=== PATIENT | female | born 1930 | race Caucasian/White ===

== ENCOUNTER 2018-02-18 20:07 | Inpatient (IN) | payer MEDICARE, MEDICAID ==
--- NOTE | 2018-02-18 20:21 | ED Physician Chart ---
ED Chief Complaint/HPI - Patient Information Date Seen:: 02/18/18 Time Seen:: 20:15 Chief Complaint:: escape risk History of Present Illness:: Patient apparently tries to escape from her detention facility Historian:: EMS Review:: Transfer documents Reviewed ED Review of Systems - Review of Systems General/Constitutional: No fever Skin: No skin lesions Head: No headache Eyes: Acuity change ENT: No earache Neck: No neck pain Cardio Vascular: No chest pain Pulmonary: No SOB GI: No nausea, No vomiting, No diarrhea G/U: No dysuria Musculoskeletal: No bone or joint pain, No back pain, No muscle pain Endocrine: No polyuria, No polydipsia Psychiatric: Prior psych history Hematopoietic: No bruising Allergic/Immuno: No urticaria Neurological: No syncope ED Past Medical History - Past Medical History Past Medical History: HTN, Dyslipidemia, Thyroid disorder, Dementia, Other ( hyperlipidemia; hypothyroidism) Family History: Other (not available) Social History: Care Facility Surgical History: other (unknown) Psychiatricy History: Dementia Medication: Reviewed Family Medical History - Family Member Mother History Unknown: Yes ED Physical Exam - Physical Examination General/Constitutional: Well-developed, well-nourished, Alert Head: Atraumatic Eyes: Lids, conjuctiva normal Skin: Nl inspection ENMT: External ears, nose nl, Nasal exam nl, Lips, teeth, gums nl Neck: Nontender, No bruit Respiratory: Nl effort/Exclusion, Clear to Auscultation Cardio Vascular: RRR Other Cardio Vascular comments:: 3/6 systolic murmur GI: No tenderness/rebounding/guarding, No organomegaly ED Labs/Radiology/EKG Results - Radiology Results Results: Laboratory Results - last 24 hr 02/18/18 02/18/18 02/18/18 20:30 20:30 20:30 WBC 7.3 RBC 3.90 Hgb 12.4 Hct 36.2 L MCV 92.8 MCH 31.7 H MCHC Differential 34.1 RDW 12.9 Plt Count 246 MPV 6.9 Neutrophils % 71.2 Lymphocytes % 19.4 L Monocytes % 5.6 Eosinophils % 3.0 Basophils % 0.8 Sodium 138 Potassium 3.6 Chloride 106 Carbon Dioxide 24.4 Anion Gap 11.2 BUN 37 H Creatinine 1.1 Est GFR ( Amer) TNP Est GFR (Non-Af Amer) TNP BUN/Creatinine Ratio 33.6 Glucose 108 H Hemoglobin A1c % 5.8 Calcium 10.2 Total Bilirubin 0.3 AST 18 ALT 6 L Alkaline Phosphatase 73 Troponin I Total Protein 6.7 Albumin 4.0 Globulin 2.7 Albumin/Globulin Ratio 1.5 Triglycerides 85 Cholesterol 204 H LDL Cholesterol Direct 135 HDL Cholesterol 51 02/18/18 20:30 WBC RBC Hgb Hct MCV MCH MCHC Differential RDW Plt Count MPV Neutrophils % Lymphocytes % Monocytes % Eosinophils % Basophils % Sodium Potassium Chloride Carbon Dioxide Anion Gap BUN Creatinine Est GFR ( Amer) Est GFR (Non-Af Amer) BUN/Creatinine Ratio Glucose Hemoglobin A1c % Calcium Total Bilirubin AST ALT Alkaline Phosphatase Troponin I 0.01 Total Protein Albumin Globulin Albumin/Globulin Ratio Triglycerides Cholesterol LDL Cholesterol Direct HDL Cholesterol - EKG Interpretations Rate & Rhythm: normal sinus rhythm with a rate of [address]: normal axis ED Assessment - Assessment General Assessment: Patient appears to have some dehydration as her BUN is 37 and creatinine is normal. She is a candidate for oral rehydration. ED Septic Shock - . Is Septic Shock (SBP<90, OR Lactate>4 mmol\L) present?: No ED Reassessment (Disposition) - Reassessment Reassessment Condition:: Unchanged - Diagnosis Diagnosis:: Dementia; escape risk; dehydration - Patient Disposition Admitted to:: [facility] Admitting Medical Physician:: Ignacio Green Admitting Psych Physician:: Colin Allen Condition at Disposition:: Stable, Unchanged
[2018-02-18 20:37] LABS: % BASOPHILS 0.8 % (0.0-2.0); % LYMPHOCYTES 19.4 % (20.0-50.0); % MONOCYTES 5.6 % (2.0-10.0); % NEUTROPHILS 71.2 % (40.0-80.0); BASOPHILE ABSOLUTE 0.1 Th/cumm (0-0.2); EOSINOPHILE ABSOLUTE 0.2 Th/cmm (0.1-0.4); HEMATOCRIT 36.2 % (41.0-60); HEMOGLOBIN 12.4 gm/dL (12-16); LYMPHOCYTE ABSOLUTE 1.4 Th/cmm (1.5-3.0); MEAN CELL VOLUME 92.8 fl (81-100); MEAN CORPUSCULAR HEMOGLOBIN 31.7 pg (27.0-31.0); MEAN CORPUSCULAR HGB CONC 34.1 pg (28.0-36.0); MEAN PLATELET VOLUME 6.9 fl; MONOCYTE ABSOLUTE 0.4 Th/cmm (0.3-1.0); NEUTROPHILE ABSOLUTE 5.2 Th/cmm (1.8-8.0); PLATELET COUNT 246 Th/cmm (150-400); RED CELL DISTRIBUTION WIDTH 12.9 % (11.5-20.0); WHITE BLOOD COUNT 7.3 Th/cmm (4.8-10.8)
[2018-02-18 21:06] LABS: ALB/GLOB RATIO 1.5 (1.0-1.8); ALKALINE PHOSPHATASE 73 U/L (34-104); ANION GAP 11.2 (7.0-16.0); BILIRUBIN,TOTAL 0.3 mg/dL (0.3-1.0); BUN - UREA NITROGEN 37 mg/dL (7-25); CALCIUM SERUM 10.2 mg/dL (8.6-10.3); CARBON DIOXIDE 24.4 mEq/L (21.0-31.0); CHLORIDE 106 mEq/L (98-107); CHOLESTEROL 204 mg/dL (<200); CREATININE - SERUM 1.1 mg/dL (0.6-1.2); GLUCOSE 108 mg/dL (70-105); HDL -HIGH DENSITY LIPOPROTEIN 51 mg/dL (23-92); POTASSIUM SERUM 3.6 mEq/L (3.5-5.1); SGOT 18 U/L (13-39); SGPT/ALT 6 U/L (7-52); SODIUM SERUM 138 mEq/L (136-145); TOTAL PROTEIN,SERUM 6.7 gm/dL (6.0-8.3); TRIGLYCERIDES 85 mg/dL (<150)
[2018-02-18 21:29] LABS: A1C % 5.8 % (4.0-6.0)
[2018-02-19] MEDS ORDERED: Haloperidol Lactate 5 mg/mL 1mL Vial ONE (00:34)
[2018-02-19] MEDS ORDERED: Haloperidol Lactate 5 mg/mL 1mL Vial IM STA (00:35)
[2018-02-19 04:50] VITALS: BP 149/76
[2018-02-19] MEDS ORDERED: Maalox 30 mL Cup PO PRN (04:54)
[2018-02-19] MEDS ORDERED: Magnesium Hydroxide (MOM) 30 mL UDC PO PRN (04:54)
[2018-02-19] MEDS: Levothyroxine 0.025 Mg Tab PO SCH (06:38)
[2018-02-19] MEDS: Multivitamin w/ Minerals Tab PO SCH (08:47)
[2018-02-19] MEDS ORDERED: MEMANTINE HCL 14 MG PO SCH (09:00)
--- NOTE | 2018-02-19 18:13 | History & Physical ---
ADMIT DATE: 02/19/2018 HISTORY OF PRESENT ILLNESS: The patient is an 87-year-old male with long history of hypertension, hypothyroidism, hyperlipidemia, dementia, admitted to [facility] Department under Dr. Allen's service. The patient denies any chest pain, shortness of breath, nausea, vomiting, fever or chills. PAST MEDICAL HISTORY: History of hypertension, hypothyroidism, hyperlipidemia, dementia, degenerative joint disease. PAST SURGICAL HISTORY: No recent surgery. ALLERGIES: None. MEDICATIONS: Follow admission reconciliation. SOCIAL HISTORY: Nonsmoker, no alcohol, no drugs. FAMILY HISTORY: Noncontributory. REVIEW OF SYSTEMS: RENAL SYSTEM: No history of chronic renal disorder. CARDIOVASCULAR SYSTEM: No coronary artery disease. ENDOCRINE: He has history of hypothyroidism. ENDOCRINE SYSTEM: No diabetes mellitus. GASTROINTESTINAL SYSTEM: No upper or lower gastrointestinal bleed. NEUROLOGICAL SYSTEM: No seizure disorder. MUSCULOSKELETAL SYSTEM: No muscular dystrophy. HEMATOLOGIC SYSTEM: No bleeding tendencies. RESPIRATORY SYSTEM: No asthma. GENITOURINARY: No dysuria or hematuria. PHYSICAL EXAMINATION: GENERAL: The patient is awake, not fully coherent. VITAL SIGNS: Temperature is 98, heart rate 74, blood pressure 144/86. HEENT: Normocephalic. Pupils reactive to light and accommodation. Sclerae clear. NECK: Supple. Negative for lymphadenopathy, JVD or bruit. CHEST: Bilateral normal. No rhonchi or wheezing. HEART: S1, S2 normal. No gallop or thrill. ABDOMEN: Soft, bowel sounds positive. EXTREMITIES: No edema. NEUROLOGIC: Awake, alert, mildly confused. No focal motor deficits. LABORATORY DATA: White blood 7.3, hemoglobin 12.4, hematocrit ____ 31.7, and platelet is 246. Sodium 138, potassium 3.6, BUN 37, creatinine 0.1, cholesterol 204. ASSESSMENT: 1. Hypertension. 2. Hyperlipidemia. 3. Hypothyroidism. 4. Dementia. PLAN: The patient admitted to the hospital under Dr. Allen's service. Medical problem to address during hospitalization is depression and dementia. Medical problems to address at discharge are hypertension, hypothyroidism, and hyperlipidemia. The patient is medically stable for activity. Thank you Dr. Allen for asking me to see your patient. JOB# [id number]
[2018-02-19] MEDS ORDERED: Non-Formulary Item 1 EA (Atorvastatin Calcium [Lipitor] 20 MG) PO SCH (21:00)
[2018-02-19] MEDS: Atorvastatin Calcium 10 MG TAB PO SCH (21:20)
[2018-02-20] MEDS: Levothyroxine 0.025 Mg Tab PO SCH (06:34)
[2018-02-20] MEDS: Multivitamin w/ Minerals Tab PO SCH (09:15)
--- NOTE | 2018-02-20 16:17 | General Progress Note ---
Subjective - Review of Systems Service Date: 02/20/18 Subjective: RESTING COMFORTABLY IN CHAIR NO DISTRESS Objective - Results Result Diagrams: 02/18/18 20:30 02/18/18 20:30 Recent Labs: Laboratory Last Values WBC 7.3 Th/cmm (4.8-10.8) 02/18/18 20:30 RBC 3.90 Mil/cmm (3.80-5.20) 02/18/18 20:30 Hgb 12.4 gm/dL (12-16) 02/18/18 20:30 Hct 36.2 % (41.0-60) L 02/18/18 20:30 MCV 92.8 fl (81-100) 02/18/18 20:30 MCH 31.7 pg (27.0-31.0) H 02/18/18 20:30 MCHC Differential 34.1 pg (28.0-36.0) 02/18/18 20:30 RDW 12.9 % (11.5-20.0) 02/18/18 20:30 Plt Count 246 Th/cmm (150-400) 02/18/18 20:30 MPV 6.9 fl 02/18/18 20:30 Neutrophils % 71.2 % (40.0-80.0) 02/18/18 20:30 Lymphocytes % 19.4 % (20.0-50.0) L 02/18/18 20:30 Monocytes % 5.6 % (2.0-10.0) 02/18/18 20:30 Eosinophils % 3.0 % (0.0-5.0) 02/18/18 20:30 Basophils % 0.8 % (0.0-2.0) 02/18/18 20:30 Sodium 138 mEq/L (136-145) 02/18/18 20:30 Potassium 3.6 mEq/L (3.5-5.1) 02/18/18 20:30 Chloride 106 mEq/L (98-107) 02/18/18 20:30 Carbon Dioxide 24.4 mEq/L (21.0-31.0) 02/18/18 20:30 Anion Gap 11.2 (7.0-16.0) 02/18/18 20:30 BUN 37 mg/dL (7-25) H 02/18/18 20:30 Creatinine 1.1 mg/dL (0.6-1.2) 02/18/18 20:30 Est GFR ( Amer) TNP 02/18/18 20:30 Est GFR (Non-Af Amer) TNP 02/18/18 20:30 BUN/Creatinine Ratio 33.6 02/18/18 20:30 Glucose 108 mg/dL (70-105) H 02/18/18 20:30 Hemoglobin A1c % 5.8 % (4.0-6.0) 02/18/18 20:30 Calcium 10.2 mg/dL (8.6-10.3) 02/18/18 20:30 Total Bilirubin 0.3 mg/dL (0.3-1.0) 02/18/18 20:30 AST 18 U/L (13-39) 02/18/18 20:30 ALT 6 U/L (7-52) L 02/18/18 20:30 Alkaline Phosphatase 73 U/L (34-104) 02/18/18 20:30 Troponin I 0.01 ng/mL (0.01-0.05) 02/18/18 20:30 Total Protein 6.7 gm/dL (6.0-8.3) 02/18/18 20:30 Albumin 4.0 gm/dL (3.7-5.3) 02/18/18 20:30 Globulin 2.7 gm/dL 02/18/18 20:30 Albumin/Globulin Ratio 1.5 (1.0-1.8) 02/18/18 20:30 Triglycerides 85 mg/dL (<150) 02/18/18 20:30 Cholesterol 204 mg/dL (<200) H 02/18/18 20:30 LDL Cholesterol Direct 135 mg/dL (75-193) 02/18/18 20:30 HDL Cholesterol 51 mg/dL (23-92) 02/18/18 20:30 TSH 1.62 uIU/ml (0.34-5.60) 02/18/18 20:30 RPR NONREACTIVE (NONREACTIVE) 02/18/18 20:30 - Physical Exam Vitals and I&O: Vital Signs Temp 98.1 F 02/20/18 07:07 Pulse 93 02/20/18 09:14 Resp 20 02/20/18 07:07 BP 157/94 02/20/18 09:14 Pulse Ox 96 02/20/18 07:07 Intake & Output 02/19/18 02/20/18 02/20/18 18:59 06:59 18:59 Intake Total 120 Balance 120 Intake: Oral 120 Other: # Voids 3 # Bowel Movements 0 Active Medications: Current Medications Al Hydrox/Mg Hydrox/Simethicone (Maalox) 30 ml PO Q6HR PRN PRN Reason: GI DISTRESS Stop: 04/20/18 04:53 Atorvastatin Calcium (Lipitor) 20 mg PO HS ALYSSA Stop: 04/20/18 20:59 Last Admin: 02/19/18 21:20 Dose: 20 mg Levothyroxine Sodium (Synthroid) 0.025 mg PO QDAC ALYSSA Stop: 04/20/18 07:29 Last Admin: 02/20/18 06:34 Dose: 0.025 mg Lorazepam (Ativan) 0.5 mg PO Q6HR PRN; Protocol PRN Reason: Agitation Stop: 04/20/18 04:55 Last Admin: 02/20/18 01:05 Dose: 0.5 mg Losartan Potassium (Cozaar) 50 mg PO DAILY ALYSSA Stop: 04/20/18 08:59 Last Admin: 02/20/18 09:14 Dose: 50 mg Magnesium Hydroxide (Milk Of Magnesia) 30 ml PO DAILY PRN PRN Reason: Constipation Stop: 04/20/18 04:53 Memantine (Namenda) 5 mg PO BID ALYSSA Stop: 04/20/18 08:59 Last Admin: 02/20/18 09:15 Dose: 5 mg Zolpidem Tartrate (Ambien) 5 mg PO HS PRN PRN Reason: Insomnia Stop: 04/20/18 04:56 Last Admin: 02/19/18 21:22 Dose: 5 mg General: No acute distress HEENT: Atraumatic, PERRLA Neck: Supple, JVD Cardiovascular: Regular rate, Normal S1, Normal S2 Lungs: Clear to auscultation Abdomen: Bowel sounds, Soft Assessment/Plan - Assessment Assessment: DEMENTIA HTN HYPERLIPIDEMIA HYPOTHYROIDISM - Plan Plan: CONTINUE CURRENT TREATMENT
[2018-02-20] MEDS: Atorvastatin Calcium 10 MG TAB PO SCH (20:46)
--- NOTE | 2018-02-20 22:13 | Psychiatric Evaluation ---
DATE OF SERVICE: 02/20/2018 PSYCHIATRIC INITIAL EVALUATION AND MENTAL STATUS EXAM AGE: 87. SEX: Female. PHYSICIAN: Dr. Allen. CHIEF COMPLAINT: Depression and isolative behavior and not taking medications. HISTORY OF PRESENT ILLNESS: The patient is an 87-year-old female who was transferred from [facility] because of increased depression and isolation and also, noncompliant with taking her medications. The patient also has been having ____ isolating herself and is sleeping a lot. She also has not been eating well according to the staff. Also, apparently the patient tried to escape from the facility recently because of her depression. The patient currently is guarded and does not want to answer most of my questions and is withdrawn. PAST PSYCHIATRIC HISTORY: The patient has history of dementia and the patient is taking Namenda 5 mg twice a day. Also, because the patient was aggressive toward the staff and agitated and was refusing to take medications and trying to escape the patient was placed on a 5150 hold for grave disability. PAST MEDICAL HISTORY: The patient has a history of what seems to be hypertension, dyslipidemia, and thyroid disease. Also, the patient has hypothyroidism. SOCIAL HISTORY: The patient lives in [facility]. No known alcohol or drug use. ALLERGIES: No known allergies. MENTAL STATUS EXAMINATION: The patient appears her stated age. Disheveled. Irritable mood. Angry. Hardly answer questions and mumbling and wants to be left alone. The patient did not answer questions regarding hallucinations or delusions but seems to be responding. The patient did not answer questions regarding suicide or homicide. The patient is alert, but seems to be disoriented to time, place, person and situation. Impaired immediate and recent memory, but intact remote memory. Poor insight and poor judgment. ASSESSMENT: PRIMARY DIAGNOSIS: Unspecified psychosis. SECONDARY DIAGNOSIS: Dementia, moderate to severe with psychotic features. MEDICAL DIAGNOSES: 1. Hypothyroidism. 2. Hypertension. 3. Hyperlipidemia. TREATMENT PLAN: We will monitor patient's behavior and condition closely. We will continue Namenda 5 mg twice a day and we will adjust the dose. Also, we will review behavior for further recommendations. ESTIMATED LENGTH OF STAY: 5-7 days. THE PATIENT'S STRENGTHS AND WEAKNESSES: The patient's strength is not clear at this time. Weaknesses are poor judgment and aggressive behavior and ineffective coping. AFTER DISCHARGE PLAN: Outpatient treatment and followup will continue as an outpatient. CRITERIA FOR DISCHARGE: The patient will not be psychotic or suicidal or homicidal and ____ impulse control and stabilize psychotropic medications. AFTER DISCHARGE PLANS: Outpatient treatment and followup and the patient will return to [place]. JOB# [id number]
[2018-02-21] MEDS: Levothyroxine 0.025 Mg Tab PO SCH (06:45)
[2018-02-21] MEDS: Multivitamin w/ Minerals Tab PO SCH (09:28)
--- NOTE | 2018-02-21 18:11 | General Progress Note ---
Subjective - Review of Systems Service Date: 02/21/18 Subjective: RESTING COMFORTABLY IN CHAIR NO DISTRESS Objective - Results Result Diagrams: 02/18/18 20:30 02/18/18 20:30 Recent Labs: Laboratory Last Values WBC 7.3 Th/cmm (4.8-10.8) 02/18/18 20:30 RBC 3.90 Mil/cmm (3.80-5.20) 02/18/18 20:30 Hgb 12.4 gm/dL (12-16) 02/18/18 20:30 Hct 36.2 % (41.0-60) L 02/18/18 20:30 MCV 92.8 fl (81-100) 02/18/18 20:30 MCH 31.7 pg (27.0-31.0) H 02/18/18 20:30 MCHC Differential 34.1 pg (28.0-36.0) 02/18/18 20:30 RDW 12.9 % (11.5-20.0) 02/18/18 20:30 Plt Count 246 Th/cmm (150-400) 02/18/18 20:30 MPV 6.9 fl 02/18/18 20:30 Neutrophils % 71.2 % (40.0-80.0) 02/18/18 20:30 Lymphocytes % 19.4 % (20.0-50.0) L 02/18/18 20:30 Monocytes % 5.6 % (2.0-10.0) 02/18/18 20:30 Eosinophils % 3.0 % (0.0-5.0) 02/18/18 20:30 Basophils % 0.8 % (0.0-2.0) 02/18/18 20:30 Sodium 138 mEq/L (136-145) 02/18/18 20:30 Potassium 3.6 mEq/L (3.5-5.1) 02/18/18 20:30 Chloride 106 mEq/L (98-107) 02/18/18 20:30 Carbon Dioxide 24.4 mEq/L (21.0-31.0) 02/18/18 20:30 Anion Gap 11.2 (7.0-16.0) 02/18/18 20:30 BUN 37 mg/dL (7-25) H 02/18/18 20:30 Creatinine 1.1 mg/dL (0.6-1.2) 02/18/18 20:30 Est GFR ( Amer) TNP 02/18/18 20:30 Est GFR (Non-Af Amer) TNP 02/18/18 20:30 BUN/Creatinine Ratio 33.6 02/18/18 20:30 Glucose 108 mg/dL (70-105) H 02/18/18 20:30 Hemoglobin A1c % 5.8 % (4.0-6.0) 02/18/18 20:30 Calcium 10.2 mg/dL (8.6-10.3) 02/18/18 20:30 Total Bilirubin 0.3 mg/dL (0.3-1.0) 02/18/18 20:30 AST 18 U/L (13-39) 02/18/18 20:30 ALT 6 U/L (7-52) L 02/18/18 20:30 Alkaline Phosphatase 73 U/L (34-104) 02/18/18 20:30 Troponin I 0.01 ng/mL (0.01-0.05) 02/18/18 20:30 Total Protein 6.7 gm/dL (6.0-8.3) 02/18/18 20:30 Albumin 4.0 gm/dL (3.7-5.3) 02/18/18 20:30 Globulin 2.7 gm/dL 02/18/18 20:30 Albumin/Globulin Ratio 1.5 (1.0-1.8) 02/18/18 20:30 Triglycerides 85 mg/dL (<150) 02/18/18 20:30 Cholesterol 204 mg/dL (<200) H 02/18/18 20:30 LDL Cholesterol Direct 135 mg/dL (75-193) 02/18/18 20:30 HDL Cholesterol 51 mg/dL (23-92) 02/18/18 20:30 TSH 1.62 uIU/ml (0.34-5.60) 02/18/18 20:30 RPR NONREACTIVE (NONREACTIVE) 02/18/18 20:30 - Physical Exam Vitals and I&O: Vital Signs Temp 97.6 F 02/21/18 06:56 Pulse 92 02/21/18 09:28 Resp 19 02/21/18 06:56 BP 149/81 02/21/18 09:28 Pulse Ox 94 02/21/18 06:56 Active Medications: Current Medications Al Hydrox/Mg Hydrox/Simethicone (Maalox) 30 ml PO Q6HR PRN PRN Reason: GI DISTRESS Stop: 04/20/18 04:53 Atorvastatin Calcium (Lipitor) 20 mg PO HS ALYSSA Stop: 04/20/18 20:59 Last Admin: 02/20/18 20:46 Dose: 20 mg Levothyroxine Sodium (Synthroid) 0.025 mg PO QDAC ALYSSA Stop: 04/20/18 07:29 Last Admin: 02/21/18 06:45 Dose: 0.025 mg Lorazepam (Ativan) 0.5 mg PO Q6HR PRN; Protocol PRN Reason: Agitation Stop: 04/20/18 04:55 Last Admin: 02/21/18 10:53 Dose: 0.5 mg Losartan Potassium (Cozaar) 50 mg PO DAILY ALYSSA Stop: 04/20/18 08:59 Last Admin: 02/21/18 09:28 Dose: 50 mg Magnesium Hydroxide (Milk Of Magnesia) 30 ml PO DAILY PRN PRN Reason: Constipation Stop: 04/20/18 04:53 Memantine (Namenda) 5 mg PO BID ALYSSA Stop: 04/20/18 08:59 Last Admin: 02/21/18 16:21 Dose: 5 mg Zolpidem Tartrate (Ambien) 5 mg PO HS PRN PRN Reason: Insomnia Stop: 04/20/18 04:56 Last Admin: 02/20/18 20:46 Dose: 5 mg General: No acute distress HEENT: Atraumatic, PERRLA Neck: Supple, JVD Cardiovascular: Regular rate, Normal S1, Normal S2 Lungs: Clear to auscultation Abdomen: Bowel sounds, Soft Assessment/Plan - Assessment Assessment: DEMENTIA HTN HYPERLIPIDEMIA HYPOTHYROIDISM - Plan Plan: CONTINUE CURRENT TREATMENT
[2018-02-21] MEDS: Atorvastatin Calcium 10 MG TAB PO SCH (20:26)
--- NOTE | 2018-02-21 20:55 | Progress Notes ---
DATE: 02/21/2018 SUBJECTIVE: Chart reviewed and the patient interviewed. Also discussed the patient's condition with the staff and reviewed the records and labs. The patient is still severely depressed with flat affect. The patient also is still unable to provide any information because both language barrier and because of her depression. She also is still uncooperative in regard to her personal hygiene and ADLs and gets agitated when staff tries to help her with her ADLs. Otherwise, the patient is compliant with taking medications with no side effects of medications. ASSESSMENT: The patient is still depressed and is still considered to be gravely disabled. TREATMENT PLAN: Continue to monitor her behavior and condition closely. Also, we will continue adjusting psychotropic medications. Also, we will place the patient on 5250 hold for grave disability. JOB# [id number]
[2018-02-22] MEDS: Levothyroxine 0.025 Mg Tab PO SCH (06:34)
[2018-02-22] MEDS: Multivitamin w/ Minerals Tab PO SCH (08:44)
--- NOTE | 2018-02-22 20:38 | Internal Medicine Prog Note ---
Internal Medicine Subjective - Subjective Service Date: 02/22/18 Patient seen and examined:: with staff Patient is:: awake, in bed, confused Per staff patient has:: no adverse event Internal Medicine Objective - Results Result Diagrams: 02/18/18 20:30 02/18/18 20:30 Recent Labs: Laboratory Last Values WBC 7.3 Th/cmm (4.8-10.8) 02/18/18 20:30 RBC 3.90 Mil/cmm (3.80-5.20) 02/18/18 20:30 Hgb 12.4 gm/dL (12-16) 02/18/18 20:30 Hct 36.2 % (41.0-60) L 02/18/18 20:30 MCV 92.8 fl (81-100) 02/18/18 20:30 MCH 31.7 pg (27.0-31.0) H 02/18/18 20:30 MCHC Differential 34.1 pg (28.0-36.0) 02/18/18 20:30 RDW 12.9 % (11.5-20.0) 02/18/18 20:30 Plt Count 246 Th/cmm (150-400) 02/18/18 20:30 MPV 6.9 fl 02/18/18 20:30 Neutrophils % 71.2 % (40.0-80.0) 02/18/18 20:30 Lymphocytes % 19.4 % (20.0-50.0) L 02/18/18 20:30 Monocytes % 5.6 % (2.0-10.0) 02/18/18 20:30 Eosinophils % 3.0 % (0.0-5.0) 02/18/18 20:30 Basophils % 0.8 % (0.0-2.0) 02/18/18 20:30 Sodium 138 mEq/L (136-145) 02/18/18 20:30 Potassium 3.6 mEq/L (3.5-5.1) 02/18/18 20:30 Chloride 106 mEq/L (98-107) 02/18/18 20:30 Carbon Dioxide 24.4 mEq/L (21.0-31.0) 02/18/18 20:30 Anion Gap 11.2 (7.0-16.0) 02/18/18 20:30 BUN 37 mg/dL (7-25) H 02/18/18 20:30 Creatinine 1.1 mg/dL (0.6-1.2) 02/18/18 20:30 Est GFR ( Amer) TNP 02/18/18 20:30 Est GFR (Non-Af Amer) TNP 02/18/18 20:30 BUN/Creatinine Ratio 33.6 02/18/18 20:30 Glucose 108 mg/dL (70-105) H 02/18/18 20:30 Hemoglobin A1c % 5.8 % (4.0-6.0) 02/18/18 20:30 Calcium 10.2 mg/dL (8.6-10.3) 02/18/18 20:30 Total Bilirubin 0.3 mg/dL (0.3-1.0) 02/18/18 20:30 AST 18 U/L (13-39) 02/18/18 20:30 ALT 6 U/L (7-52) L 02/18/18 20:30 Alkaline Phosphatase 73 U/L (34-104) 02/18/18 20:30 Troponin I 0.01 ng/mL (0.01-0.05) 02/18/18 20:30 Total Protein 6.7 gm/dL (6.0-8.3) 02/18/18 20:30 Albumin 4.0 gm/dL (3.7-5.3) 02/18/18 20:30 Globulin 2.7 gm/dL 02/18/18 20:30 Albumin/Globulin Ratio 1.5 (1.0-1.8) 02/18/18 20:30 Triglycerides 85 mg/dL (<150) 02/18/18 20:30 Cholesterol 204 mg/dL (<200) H 02/18/18 20:30 LDL Cholesterol Direct 135 mg/dL (75-193) 02/18/18 20:30 HDL Cholesterol 51 mg/dL (23-92) 02/18/18 20:30 TSH 1.62 uIU/ml (0.34-5.60) 02/18/18 20:30 RPR NONREACTIVE (NONREACTIVE) 02/18/18 20:30 - Physical Exam Vitals and I&O: Vital Signs Temp 98.1 F 02/22/18 15:54 Pulse 89 02/22/18 15:54 Resp 19 02/22/18 15:54 BP 130/71 02/22/18 15:54 Pulse Ox 95 02/22/18 15:54 Intake & Output 02/22/18 02/22/18 02/23/18 06:59 18:59 06:59 Intake Total 240 Balance 240 Intake: Oral 240 Other: # Voids 2 Stool Characteristics Formed Active Medications: Current Medications Al Hydrox/Mg Hydrox/Simethicone (Maalox) 30 ml PO Q6HR PRN PRN Reason: GI DISTRESS Stop: 04/20/18 04:53 Atorvastatin Calcium (Lipitor) 20 mg PO HS ALYSSA Stop: 04/20/18 20:59 Last Admin: 02/21/18 20:26 Dose: 20 mg Levothyroxine Sodium (Synthroid) 0.025 mg PO QDAC ALYSSA Stop: 04/20/18 07:29 Last Admin: 02/22/18 06:34 Dose: 0.025 mg Lorazepam (Ativan) 0.5 mg PO Q6HR PRN; Protocol PRN Reason: Agitation Stop: 04/20/18 04:55 Last Admin: 02/22/18 13:50 Dose: 0.5 mg Losartan Potassium (Cozaar) 50 mg PO DAILY ALYSSA Stop: 04/20/18 08:59 Last Admin: 02/22/18 08:43 Dose: 50 mg Magnesium Hydroxide (Milk Of Magnesia) 30 ml PO DAILY PRN PRN Reason: Constipation Stop: 04/20/18 04:53 Memantine (Namenda) 5 mg PO BID ALYSSA Stop: 04/20/18 08:59 Last Admin: 02/22/18 16:48 Dose: 5 mg Zolpidem Tartrate (Ambien) 5 mg PO HS PRN PRN Reason: Insomnia Stop: 04/20/18 04:56 Last Admin: 02/21/18 20:26 Dose: 5 mg General: demented HEENT: NC/AT, PERRLA, EOMI, anicteric sclerae, throat clear Neck: Supple, No JVD, No thyromegaly, +2 carotid pulse wo bruit, No LAD Lungs: CTAB Cardiovascular: RRR, Normal S1, Normal S2, without murmur Abdomen: soft, non-tender, non-distended Extremities: clear Neurological: no change Internal Medicine Assmt/Plan - Assessment Assessment: 1.HTN. 2.HYPOTHYROIDISIM. 3.HYPERLIPIDEMIA. 4.DEMENTIA. - Plan Plan: CONTINUE ON CURRENT MEDICATION AND DIET.
[2018-02-22] MEDS: Atorvastatin Calcium 10 MG TAB PO SCH (21:11)
--- NOTE | 2018-02-22 23:02 | Progress Notes ---
DATE: 02/22/[address] Allen. Case was discussed with staff of the patient, reviewed records. This is an 87-year-old male who was admitted on 02/20/2018. The patient came from [place] because of increasing depression, noncompliant with taking her medication, has been isolating herself sleeping a lot, not eating well. Continues to be unpredictable, impulsive with a history of dementia. The patient is on Namenda 5 mg twice a day. She is compliant with the medication with no side effects, no sedation, no nausea, no extrapyramidal symptoms and we will continue to work with the patient in group therapy, milieu therapy, adjust medication as needed. JOB# [id number]
[2018-02-23] MEDS: Levothyroxine 0.025 Mg Tab PO SCH (06:37)
[2018-02-23] MEDS: Multivitamin w/ Minerals Tab PO SCH (08:13)
[2018-02-23] MEDS ORDERED: Haloperidol Lactate 5 mg/mL 1mL Vial ONE (08:26)
[2018-02-23] MEDS ORDERED: Haloperidol Lactate 5 mg/mL 1mL Vial IM STA (08:27)
--- NOTE | 2018-02-23 16:02 | Progress Notes ---
DATE: 02/23/2018 SUBJECTIVE: An 87-year-old female transferred from [facility] was depressed, isolative, poor medication compliance, sleeping more than usual and not eating very well, apparently tried to escape the facility at some point, history of dementia. Dr. Guerin saw the patient yesterday, noted to be unpredictable, impulsive, some confusion noted. On [id number], the patient is withdrawn, isolative, not really cooperative with interview. Staff noting she has been in a Carole chair, awake, alert, at times not answering questions. She did on my exam noted to be confused, anxious, sometimes hostile and other times hyperverbal. Medications were reviewed including dosages and frequencies. The patient on Namenda for example. ASSESSMENT: The patient remains symptomatic, confused, still impulsive and unpredictable. Given her ongoing symptoms, she is not safe for discharge. [facility]# [id number]
[2018-02-23] MEDS: Atorvastatin Calcium 10 MG TAB PO SCH (20:25)
--- NOTE | 2018-02-23 21:18 | Internal Medicine Prog Note ---
Internal Medicine Subjective - Subjective Service Date: 02/23/18 Patient seen and examined:: with staff Patient is:: awake, in bed, confused Per staff patient has:: no adverse event Internal Medicine Objective - Results Result Diagrams: 02/18/18 20:30 02/18/18 20:30 Recent Labs: Laboratory Last Values WBC 7.3 Th/cmm (4.8-10.8) 02/18/18 20:30 RBC 3.90 Mil/cmm (3.80-5.20) 02/18/18 20:30 Hgb 12.4 gm/dL (12-16) 02/18/18 20:30 Hct 36.2 % (41.0-60) L 02/18/18 20:30 MCV 92.8 fl (81-100) 02/18/18 20:30 MCH 31.7 pg (27.0-31.0) H 02/18/18 20:30 MCHC Differential 34.1 pg (28.0-36.0) 02/18/18 20:30 RDW 12.9 % (11.5-20.0) 02/18/18 20:30 Plt Count 246 Th/cmm (150-400) 02/18/18 20:30 MPV 6.9 fl 02/18/18 20:30 Neutrophils % 71.2 % (40.0-80.0) 02/18/18 20:30 Lymphocytes % 19.4 % (20.0-50.0) L 02/18/18 20:30 Monocytes % 5.6 % (2.0-10.0) 02/18/18 20:30 Eosinophils % 3.0 % (0.0-5.0) 02/18/18 20:30 Basophils % 0.8 % (0.0-2.0) 02/18/18 20:30 Sodium 138 mEq/L (136-145) 02/18/18 20:30 Potassium 3.6 mEq/L (3.5-5.1) 02/18/18 20:30 Chloride 106 mEq/L (98-107) 02/18/18 20:30 Carbon Dioxide 24.4 mEq/L (21.0-31.0) 02/18/18 20:30 Anion Gap 11.2 (7.0-16.0) 02/18/18 20:30 BUN 37 mg/dL (7-25) H 02/18/18 20:30 Creatinine 1.1 mg/dL (0.6-1.2) 02/18/18 20:30 Est GFR ( Amer) TNP 02/18/18 20:30 Est GFR (Non-Af Amer) TNP 02/18/18 20:30 BUN/Creatinine Ratio 33.6 02/18/18 20:30 Glucose 108 mg/dL (70-105) H 02/18/18 20:30 Hemoglobin A1c % 5.8 % (4.0-6.0) 02/18/18 20:30 Calcium 10.2 mg/dL (8.6-10.3) 02/18/18 20:30 Total Bilirubin 0.3 mg/dL (0.3-1.0) 02/18/18 20:30 AST 18 U/L (13-39) 02/18/18 20:30 ALT 6 U/L (7-52) L 02/18/18 20:30 Alkaline Phosphatase 73 U/L (34-104) 02/18/18 20:30 Troponin I 0.01 ng/mL (0.01-0.05) 02/18/18 20:30 Total Protein 6.7 gm/dL (6.0-8.3) 02/18/18 20:30 Albumin 4.0 gm/dL (3.7-5.3) 02/18/18 20:30 Globulin 2.7 gm/dL 02/18/18 20:30 Albumin/Globulin Ratio 1.5 (1.0-1.8) 02/18/18 20:30 Triglycerides 85 mg/dL (<150) 02/18/18 20:30 Cholesterol 204 mg/dL (<200) H 02/18/18 20:30 LDL Cholesterol Direct 135 mg/dL (75-193) 02/18/18 20:30 HDL Cholesterol 51 mg/dL (23-92) 02/18/18 20:30 TSH 1.62 uIU/ml (0.34-5.60) 02/18/18 20:30 RPR NONREACTIVE (NONREACTIVE) 02/18/18 20:30 - Physical Exam Vitals and I&O: Vital Signs Temp 97.8 F 02/23/18 14:00 Pulse 72 02/23/18 14:00 Resp 16 02/23/18 14:00 BP 125/77 02/23/18 14:00 Pulse Ox 96 02/23/18 14:00 Intake & Output 02/23/18 02/23/18 02/24/18 06:59 18:59 06:59 Intake Total 240 Balance 240 Intake: Oral 240 Other: # Voids 3 # Bowel Movements 0 Active Medications: Current Medications Al Hydrox/Mg Hydrox/Simethicone (Maalox) 30 ml PO Q6HR PRN PRN Reason: GI DISTRESS Stop: 04/20/18 04:53 Atorvastatin Calcium (Lipitor) 20 mg PO HS ALYSSA Stop: 04/20/18 20:59 Last Admin: 02/23/18 20:25 Dose: 20 mg Levothyroxine Sodium (Synthroid) 0.025 mg PO QDAC ALYSSA Stop: 04/20/18 07:29 Last Admin: 02/23/18 06:37 Dose: 0.025 mg Lorazepam (Ativan) 0.5 mg PO Q6HR PRN; Protocol PRN Reason: Agitation Stop: 04/20/18 04:55 Last Admin: 02/23/18 20:25 Dose: 0.5 mg Lorazepam (Ativan) 0.5 mg PO Q4HR PRN; Protocol PRN Reason: Agitation Stop: 04/24/18 07:41 Losartan Potassium (Cozaar) 50 mg PO DAILY ALYSSA Stop: 04/20/18 08:59 Last Admin: 02/23/18 08:14 Dose: 50 mg Magnesium Hydroxide (Milk Of Magnesia) 30 ml PO DAILY PRN PRN Reason: Constipation Stop: 04/20/18 04:53 Memantine (Namenda) 5 mg PO BID ALYSSA Stop: 04/20/18 08:59 Last Admin: 02/23/18 18:38 Dose: Not Given Zolpidem Tartrate (Ambien) 5 mg PO HS PRN PRN Reason: Insomnia Stop: 04/20/18 04:56 Last Admin: 02/23/18 20:25 Dose: 5 mg General: demented HEENT: NC/AT, PERRLA, EOMI, anicteric sclerae, throat clear Neck: Supple, No JVD, No thyromegaly, +2 carotid pulse wo bruit, No LAD Lungs: CTAB Cardiovascular: RRR, Normal S1, Normal S2, without murmur Abdomen: soft, non-tender, non-distended Extremities: clear Neurological: no change Internal Medicine Assmt/Plan - Assessment Assessment: 1.HTN. 2.HYPOTHYROIDISIM. 3.HYPERLIPIDEMIA. 4.DEMENTIA. - Plan Plan: CONTINUE ON CURRENT MEDICATION AND DIET. Nutritional Asmnt/Malnutr-PDOC - Dietary Evaluation Malnutrition Findings (Please click <Entered> for more info): Nutritional Asmnt/Malnutrition Start: 02/23/18 12: 53 Text: Status: Complete Freq: Protocol: Document 02/23/18 12:53 [facility] (Rec: 02/23/18 12:56 [facility] [email or web address]) Nutritional Asmnt/Malnutrition Patient General Information Nutritional Screening Moderate Risk Diagnosis psychosis NOS Pertinent Medical Hx/Surgical Hx HTN, hypothyroidism, hyperlipidemia, dementia, DJD Subjective Information Pt seen sleeping in bed at time of visit. per EMR, PO intake 100% of meals. Current Diet Order/ Nutrition Support mec soft chopped NIKOLAY Pertinent Medications synthroid Pertinent Labs 02/18 BUN 37, glucose 108, A1c 5.8 Nutritional Hx/Data Height 1.63 m Height (Calculated Centimeters) 162.6 Current Weight (lbs) 63.503 kg Weight (Calculated Kilograms) 63.5 Weight (Calculated Grams) 20557.9 [place] Body Weight 120 Body Mass Index (BMI) 24.0 Weight Status Approriate GI Symptoms GI Symptoms None Last BM none Difficult in: None Skin Integrity/Comment: intact Current %PO Good (75-100%) Estimated Nutritional Goals BEE in Kcals: Using Current wt Calories/Kcals/Kg 25-30 Kcals Calculated 3533-1690 Protein: Using Current wt Protein g/k Protein Calculated 64 Fluid: ml 1600-1920ml (1ml/kcal) Nutritional Problem No current Nutrition Prob Problem N/A Malnutrition Alert Is there a minimum of two criteria No selected? Query Text:Check all the applicable criteria. A minimum of two criteria are recommended for diagnosis of either severe or non-severe malnutrition. Malnutrition Related to Morbid Obesity Malnutrition related to morbid obesity No Intervention/Recommendation Comments 1. Continue with mech soft chopped NIKOLAY diet as ordered. 2. Monitor PO intake, wt, labs and skin integrity 3. F/U as low risk in 7 days, 03/02 Expected Outcomes/Goals Expected Outcomes/Goals 1. PO intake to meet at least 75% of nutritional needs. 2. Wt stability, skin to remain intact, labs to approach WNL.
--- NOTE | 2018-02-23 22:00 | History & Physical ---
ADMIT DATE: 02/23/2018 HISTORY OF PRESENT ILLNESS: The patient is an 87-year-old male with long history of hypertension, hypothyroidism, hyperlipidemia, dementia, admitted to under Dr. Allen's service for evaluation and treatment. The patient has been agitated and confused. The patient is a poor historian. PAST MEDICAL HISTORY: History of hypertension, hyperlipidemia, hypothyroidism, degenerative joint disease, dementia. PAST SURGICAL HISTORY: No recent surgery. ALLERGIES: None. SOCIAL HISTORY: No smoking, no alcohol, no drug. MEDICATIONS: Follow admission reconciliation. REVIEW OF SYSTEMS: RENAL SYSTEM: No history of chronic renal disorder. CARDIOVASCULAR SYSTEM: History of hypertension, no coronary artery disease. ENDOCRINE SYSTEM: No diabetes mellitus. She has history of hypothyroidism. GASTROINTESTINAL SYSTEM: No upper or lower gastrointestinal bleed. NEUROLOGICAL SYSTEM: Has history of dementia. No seizure disorder. SKELETOMUSCULAR SYSTEM: Has degenerative joint disease. HEMATOLOGIC SYSTEM: No bleeding tendencies. RESPIRATORY SYSTEM: No asthma. GENITOURINARY: No dysuria or hematuria. PHYSICAL EXAMINATION: GENERAL: She is awake, not coherent. VITAL SIGNS: Temperature is 97.8, heart rate 72, blood pressure 125/77. HEENT: Normocephalic. Pupils reacting equally to light and accommodation. Sclerae clear. NECK: Supple. Negative for lymphadenopathy, JVD or bruit. CHEST: Air bilaterally normal. No rhonchi or wheezing. HEART: S1, S2 normal. No gallop rhythm. ABDOMEN: Soft, bowel sounds positive. EXTREMITIES: No edema. BACK: No vertebral. SKIN: Intact. GENITALIA AND RECTAL: No complaint done by primary physician. NEUROLOGIC: Awake, not coherent. No focal motor deficits. LABORATORY DATA: White blood cell , hemoglobin 12.4, hematocrit 36.2, platelet 246. Sodium 138, potassium 3.6, BUN 37, creatinine 1.1. Cholesterol 204, TSH 1.62. RPR is nonreactive. ASSESSMENT: 1. Hypertension. 2. Hypothyroidism. 3. Hyperlipidemia. 4. Dementia. PLAN: The patient admitted to the hospital, admitted to [facility] under Dr. Allen's service. Medical problems addressed during this hospitalization is dementia. Medical problems addressed at discharge are hypertension, hyperlipidemia, hypothyroidism. The patient is medically stable for activity. Thank you Dr. Allen for asking me to see your patient. [facility]# [id number]
[2018-02-24] MEDS: Levothyroxine 0.025 Mg Tab PO SCH (06:33)
[2018-02-24] MEDS: Multivitamin w/ Minerals Tab PO SCH (09:50)
[2018-02-24] MEDS: Atorvastatin Calcium 10 MG TAB PO SCH (20:31)
--- NOTE | 2018-02-24 21:49 | Internal Medicine Prog Note ---
Internal Medicine Subjective - Subjective Service Date: 02/24/18 Patient seen and examined:: with staff Patient is:: awake, in bed, confused Per staff patient has:: no adverse event Internal Medicine Objective - Results Result Diagrams: 02/18/18 20:30 02/18/18 20:30 Recent Labs: Laboratory Last Values WBC 7.3 Th/cmm (4.8-10.8) 02/18/18 20:30 RBC 3.90 Mil/cmm (3.80-5.20) 02/18/18 20:30 Hgb 12.4 gm/dL (12-16) 02/18/18 20:30 Hct 36.2 % (41.0-60) L 02/18/18 20:30 MCV 92.8 fl (81-100) 02/18/18 20:30 MCH 31.7 pg (27.0-31.0) H 02/18/18 20:30 MCHC Differential 34.1 pg (28.0-36.0) 02/18/18 20:30 RDW 12.9 % (11.5-20.0) 02/18/18 20:30 Plt Count 246 Th/cmm (150-400) 02/18/18 20:30 MPV 6.9 fl 02/18/18 20:30 Neutrophils % 71.2 % (40.0-80.0) 02/18/18 20:30 Lymphocytes % 19.4 % (20.0-50.0) L 02/18/18 20:30 Monocytes % 5.6 % (2.0-10.0) 02/18/18 20:30 Eosinophils % 3.0 % (0.0-5.0) 02/18/18 20:30 Basophils % 0.8 % (0.0-2.0) 02/18/18 20:30 Sodium 138 mEq/L (136-145) 02/18/18 20:30 Potassium 3.6 mEq/L (3.5-5.1) 02/18/18 20:30 Chloride 106 mEq/L (98-107) 02/18/18 20:30 Carbon Dioxide 24.4 mEq/L (21.0-31.0) 02/18/18 20:30 Anion Gap 11.2 (7.0-16.0) 02/18/18 20:30 BUN 37 mg/dL (7-25) H 02/18/18 20:30 Creatinine 1.1 mg/dL (0.6-1.2) 02/18/18 20:30 Est GFR ( Amer) TNP 02/18/18 20:30 Est GFR (Non-Af Amer) TNP 02/18/18 20:30 BUN/Creatinine Ratio 33.6 02/18/18 20:30 Glucose 108 mg/dL (70-105) H 02/18/18 20:30 Hemoglobin A1c % 5.8 % (4.0-6.0) 02/18/18 20:30 Calcium 10.2 mg/dL (8.6-10.3) 02/18/18 20:30 Total Bilirubin 0.3 mg/dL (0.3-1.0) 02/18/18 20:30 AST 18 U/L (13-39) 02/18/18 20:30 ALT 6 U/L (7-52) L 02/18/18 20:30 Alkaline Phosphatase 73 U/L (34-104) 02/18/18 20:30 Troponin I 0.01 ng/mL (0.01-0.05) 02/18/18 20:30 Total Protein 6.7 gm/dL (6.0-8.3) 02/18/18 20:30 Albumin 4.0 gm/dL (3.7-5.3) 02/18/18 20:30 Globulin 2.7 gm/dL 02/18/18 20:30 Albumin/Globulin Ratio 1.5 (1.0-1.8) 02/18/18 20:30 Triglycerides 85 mg/dL (<150) 02/18/18 20:30 Cholesterol 204 mg/dL (<200) H 02/18/18 20:30 LDL Cholesterol Direct 135 mg/dL (75-193) 02/18/18 20:30 HDL Cholesterol 51 mg/dL (23-92) 02/18/18 20:30 TSH 1.62 uIU/ml (0.34-5.60) 02/18/18 20:30 RPR NONREACTIVE (NONREACTIVE) 02/18/18 20:30 - Physical Exam Vitals and I&O: Vital Signs Temp 98.4 F 02/24/18 20:00 Pulse 99 02/24/18 20:00 Resp 21 02/24/18 20:00 BP 146/72 02/24/18 20:00 Pulse Ox 98 02/24/18 20:00 Intake & Output 02/24/18 02/24/18 02/25/18 06:59 18:59 06:59 Intake Total 120 800 Balance 120 800 Intake: Oral 120 800 Other: # Voids 3 3 # Bowel Movements 1 Active Medications: Current Medications Al Hydrox/Mg Hydrox/Simethicone (Maalox) 30 ml PO Q6HR PRN PRN Reason: GI DISTRESS Stop: 04/20/18 04:53 Atorvastatin Calcium (Lipitor) 20 mg PO HS ALYSSA Stop: 04/20/18 20:59 Last Admin: 02/24/18 20:31 Dose: 20 mg Levothyroxine Sodium (Synthroid) 0.025 mg PO QDAC ALYSSA Stop: 04/20/18 07:29 Last Admin: 02/24/18 06:33 Dose: 0.025 mg Lorazepam (Ativan) 0.5 mg PO Q6HR PRN; Protocol PRN Reason: Agitation Stop: 04/20/18 04:55 Last Admin: 02/24/18 17:30 Dose: 0.5 mg Lorazepam (Ativan) 0.5 mg PO Q4HR PRN; Protocol PRN Reason: Agitation Stop: 04/24/18 07:41 Losartan Potassium (Cozaar) 50 mg PO DAILY ALYSSA Stop: 04/20/18 08:59 Last Admin: 02/24/18 09:49 Dose: 50 mg Magnesium Hydroxide (Milk Of Magnesia) 30 ml PO DAILY PRN PRN Reason: Constipation Stop: 04/20/18 04:53 Memantine (Namenda) 5 mg PO BID ALYSSA Stop: 04/20/18 08:59 Last Admin: 02/24/18 17:30 Dose: 5 mg Zolpidem Tartrate (Ambien) 5 mg PO HS PRN PRN Reason: Insomnia Stop: 04/20/18 04:56 Last Admin: 02/24/18 20:31 Dose: 5 mg General: demented HEENT: NC/AT, PERRLA, EOMI, anicteric sclerae, throat clear Neck: Supple, No JVD, No thyromegaly, +2 carotid pulse wo bruit, No LAD Lungs: CTAB Cardiovascular: RRR, Normal S1, Normal S2, without murmur Abdomen: soft, non-tender, non-distended Extremities: clear Neurological: no change Internal Medicine Assmt/Plan - Assessment Assessment: 1.HTN. 2.HYPOTHYROIDISIM. 3.HYPERLIPIDEMIA. 4.DEMENTIA. - Plan Plan: CONTINUE ON CURRENT MEDICATION AND DIET. Nutritional Asmnt/Malnutr-PDOC - Dietary Evaluation Malnutrition Findings (Please click <Entered> for more info): Nutritional Asmnt/Malnutrition Start: 02/23/18 12: 53 Text: Status: Complete Freq: Protocol: Document 02/23/18 12:53 [facility] (Rec: 02/23/18 12:56 [facility] [email or web address]) Nutritional Asmnt/Malnutrition Patient General Information Nutritional Screening Moderate Risk Diagnosis psychosis NOS Pertinent Medical Hx/Surgical Hx HTN, hypothyroidism, hyperlipidemia, dementia, DJD Subjective Information Pt seen sleeping in bed at time of visit. per EMR, PO intake 100% of meals. Current Diet Order/ Nutrition Support mech soft chopped NIKOLAY Pertinent Medications synthroid Pertinent Labs 02/18 BUN 37, glucose 108, A1c 5.8 Nutritional Hx/Data Height 1.63 m Height (Calculated Centimeters) 162.6 Current Weight (lbs) 63.503 kg Weight (Calculated Kilograms) 63.5 Weight (Calculated Grams) 93305.9 [place] Body Weight 120 Body Mass Index (BMI) 24.0 Weight Status Approriate GI Symptoms GI Symptoms None Last BM none Difficult in: None Skin Integrity/Comment: intact Current %PO Good (75-100%) Estimated Nutritional Goals BEE in Kcals: Using Current wt Calories/Kcals/Kg 25-30 Kcals Calculated 8192-1709 Protein: Using Current wt Protein g/k Protein Calculated 64 Fluid: ml 1600-1920ml (1ml/kcal) Nutritional Problem No current Nutrition Prob Problem N/A Malnutrition Alert Is there a minimum of two criteria No selected? Query Text:Check all the applicable criteria. A minimum of two criteria are recommended for diagnosis of either severe or non-severe malnutrition. Malnutrition Related to Morbid Obesity Malnutrition related to morbid obesity No Intervention/Recommendation Comments 1. Continue with mech soft chopped NIKOLAY diet as ordered. 2. Monitor PO intake, wt, labs and skin integrity 3. F/U as low risk in 7 days, 03/02 Expected Outcomes/Goals Expected Outcomes/Goals 1. PO intake to meet at least 75% of nutritional needs. 2. Wt stability, skin to remain intact, labs to approach WNL.
[2018-02-25] MEDS: Levothyroxine 0.025 Mg Tab PO SCH (06:44)
[2018-02-25] MEDS: Multivitamin w/ Minerals Tab PO SCH (08:59)
[2018-02-25] MEDS: Atorvastatin Calcium 10 MG TAB PO SCH (20:54)
--- NOTE | 2018-02-25 22:20 | Internal Medicine Prog Note ---
Internal Medicine Subjective - Subjective Service Date: 02/25/18 Patient seen and examined:: with staff Patient is:: awake, in bed, confused Per staff patient has:: no adverse event Internal Medicine Objective - Results Result Diagrams: 02/18/18 20:30 02/18/18 20:30 Recent Labs: Laboratory Last Values WBC 7.3 Th/cmm (4.8-10.8) 02/18/18 20:30 RBC 3.90 Mil/cmm (3.80-5.20) 02/18/18 20:30 Hgb 12.4 gm/dL (12-16) 02/18/18 20:30 Hct 36.2 % (41.0-60) L 02/18/18 20:30 MCV 92.8 fl (81-100) 02/18/18 20:30 MCH 31.7 pg (27.0-31.0) H 02/18/18 20:30 MCHC Differential 34.1 pg (28.0-36.0) 02/18/18 20:30 RDW 12.9 % (11.5-20.0) 02/18/18 20:30 Plt Count 246 Th/cmm (150-400) 02/18/18 20:30 MPV 6.9 fl 02/18/18 20:30 Neutrophils % 71.2 % (40.0-80.0) 02/18/18 20:30 Lymphocytes % 19.4 % (20.0-50.0) L 02/18/18 20:30 Monocytes % 5.6 % (2.0-10.0) 02/18/18 20:30 Eosinophils % 3.0 % (0.0-5.0) 02/18/18 20:30 Basophils % 0.8 % (0.0-2.0) 02/18/18 20:30 Sodium 138 mEq/L (136-145) 02/18/18 20:30 Potassium 3.6 mEq/L (3.5-5.1) 02/18/18 20:30 Chloride 106 mEq/L (98-107) 02/18/18 20:30 Carbon Dioxide 24.4 mEq/L (21.0-31.0) 02/18/18 20:30 Anion Gap 11.2 (7.0-16.0) 02/18/18 20:30 BUN 37 mg/dL (7-25) H 02/18/18 20:30 Creatinine 1.1 mg/dL (0.6-1.2) 02/18/18 20:30 Est GFR ( Amer) TNP 02/18/18 20:30 Est GFR (Non-Af Amer) TNP 02/18/18 20:30 BUN/Creatinine Ratio 33.6 02/18/18 20:30 Glucose 108 mg/dL (70-105) H 02/18/18 20:30 Hemoglobin A1c % 5.8 % (4.0-6.0) 02/18/18 20:30 Calcium 10.2 mg/dL (8.6-10.3) 02/18/18 20:30 Total Bilirubin 0.3 mg/dL (0.3-1.0) 02/18/18 20:30 AST 18 U/L (13-39) 02/18/18 20:30 ALT 6 U/L (7-52) L 02/18/18 20:30 Alkaline Phosphatase 73 U/L (34-104) 02/18/18 20:30 Troponin I 0.01 ng/mL (0.01-0.05) 02/18/18 20:30 Total Protein 6.7 gm/dL (6.0-8.3) 02/18/18 20:30 Albumin 4.0 gm/dL (3.7-5.3) 02/18/18 20:30 Globulin 2.7 gm/dL 02/18/18 20:30 Albumin/Globulin Ratio 1.5 (1.0-1.8) 02/18/18 20:30 Triglycerides 85 mg/dL (<150) 02/18/18 20:30 Cholesterol 204 mg/dL (<200) H 02/18/18 20:30 LDL Cholesterol Direct 135 mg/dL (75-193) 02/18/18 20:30 HDL Cholesterol 51 mg/dL (23-92) 02/18/18 20:30 TSH 1.62 uIU/ml (0.34-5.60) 02/18/18 20:30 RPR NONREACTIVE (NONREACTIVE) 02/18/18 20:30 - Physical Exam Vitals and I&O: Vital Signs Temp 98.9 F 02/25/18 21:26 Pulse 98 02/25/18 21:26 Resp 19 02/25/18 21:26 BP 160/91 02/25/18 21:26 Pulse Ox 95 02/25/18 21:26 Intake & Output 02/25/18 02/25/18 02/26/18 06:59 18:59 06:59 Intake Total 120 500 Output Total 1 Balance 120 -1 500 Intake: Oral 120 500 Output: Stool 1 Other: # Voids 3 4 3 # Bowel Movements 1 0 Active Medications: Current Medications Al Hydrox/Mg Hydrox/Simethicone (Maalox) 30 ml PO Q6HR PRN PRN Reason: GI DISTRESS Stop: 04/20/18 04:53 Atorvastatin Calcium (Lipitor) 20 mg PO HS ALYSSA Stop: 04/20/18 20:59 Last Admin: 02/25/18 20:54 Dose: 20 mg Levothyroxine Sodium (Synthroid) 0.025 mg PO QDAC ALYSSA Stop: 04/20/18 07:29 Last Admin: 02/25/18 06:44 Dose: 0.025 mg Lorazepam (Ativan) 0.5 mg PO Q4HR PRN; Protocol PRN Reason: Agitation Stop: 04/24/18 07:41 Losartan Potassium (Cozaar) 50 mg PO DAILY ALYSSA Stop: 04/20/18 08:59 Last Admin: 02/25/18 08:58 Dose: 50 mg Magnesium Hydroxide (Milk Of Magnesia) 30 ml PO DAILY PRN PRN Reason: Constipation Stop: 04/20/18 04:53 Memantine (Namenda) 5 mg PO BID ALYSSA Stop: 04/20/18 08:59 Last Admin: 02/25/18 17:11 Dose: 5 mg Zolpidem Tartrate (Ambien) 5 mg PO HS PRN PRN Reason: Insomnia Stop: 04/20/18 04:56 Last Admin: 02/25/18 20:55 Dose: 5 mg General: demented HEENT: NC/AT, PERRLA, EOMI, anicteric sclerae, throat clear Neck: Supple, No JVD, No thyromegaly, +2 carotid pulse wo bruit, No LAD Lungs: CTAB Cardiovascular: RRR, Normal S1, Normal S2, without murmur Abdomen: soft, non-tender, non-distended Extremities: clear Neurological: no change Internal Medicine Assmt/Plan - Assessment Assessment: 1.HTN. 2.HYPOTHYROIDISIM. 3.HYPERLIPIDEMIA. 4.DEMENTIA. - Plan Plan: CONTINUE ON CURRENT MEDICATION AND DIET. Nutritional Asmnt/Malnutr-PDOC - Dietary Evaluation Malnutrition Findings (Please click <Entered> for more info): Nutritional Asmnt/Malnutrition Start: 02/23/18 12: 53 Text: Status: Complete Freq: Protocol: Document 02/23/18 12:53 [facility] (Rec: 02/23/18 12:56 [facility] [email or web address]) Nutritional Asmnt/Malnutrition Patient General Information Nutritional Screening Moderate Risk Diagnosis psychosis NOS Pertinent Medical Hx/Surgical Hx HTN, hypothyroidism, hyperlipidemia, dementia, DJD Subjective Information Pt seen sleeping in bed at time of visit. per EMR, PO intake 100% of meals. Current Diet Order/ Nutrition Support mec soft chopped NIKOLAY Pertinent Medications synthroid Pertinent Labs 02/18 BUN 37, glucose 108, A1c 5.8 Nutritional Hx/Data Height 1.63 m Height (Calculated Centimeters) 162.6 Current Weight (lbs) 63.503 kg Weight (Calculated Kilograms) 63.5 Weight (Calculated Grams) 98136.9 [place] Body Weight 120 Body Mass Index (BMI) 24.0 Weight Status Approriate GI Symptoms GI Symptoms None Last BM none Difficult in: None Skin Integrity/Comment: intact Current %PO Good (75-100%) Estimated Nutritional Goals BEE in Kcals: Using Current wt Calories/Kcals/Kg 25-30 Kcals Calculated 6400-1662 Protein: Using Current wt Protein g/k Protein Calculated 64 Fluid: ml 1600-1920ml (1ml/kcal) Nutritional Problem No current Nutrition Prob Problem N/A Malnutrition Alert Is there a minimum of two criteria No selected? Query Text:Check all the applicable criteria. A minimum of two criteria are recommended for diagnosis of either severe or non-severe malnutrition. Malnutrition Related to Morbid Obesity Malnutrition related to morbid obesity No Intervention/Recommendation Comments 1. Continue with [facility] soft chopped NIKOLAY diet as ordered. 2. Monitor PO intake, wt, labs and skin integrity 3. F/U as low risk in 7 days, 03/02 Expected Outcomes/Goals Expected Outcomes/Goals 1. PO intake to meet at least 75% of nutritional needs. 2. Wt stability, skin to remain intact, labs to approach WNL.
--- NOTE | 2018-02-26 00:37 | Progress Notes ---
DATE: 02/25/2018 SUBJECTIVE: Chart reviewed and the patient interviewed. Also discussed the patient's condition with the staff and reviewed records and labs. The patient is still confused and she is still not able to answer questions most probably because of language barrier and also because of her psychosis and seems to be preoccupied. The patient also seems agitated and she tries to get out of the Carole chair and fighting with anybody who comes close by. She also in a Carole chair because she is at high fall risk and trying to get out of the chair. Otherwise, the patient is compliant with taking her medications and continue to take Namenda and Ativan with no side effects. ASSESSMENT: The patient is still confused and agitated. TREATMENT PLAN: Continue to monitor behavior and her condition closely. Continue to work on her irritability and her agitation and continue to follow up. JOB# [id number]
[2018-02-26] MEDS: Levothyroxine 0.025 Mg Tab PO SCH (06:34)
[2018-02-26] MEDS: Multivitamin w/ Minerals Tab PO SCH (08:30)
[2018-02-26] MEDS: Atorvastatin Calcium 10 MG TAB PO SCH (20:51)
--- NOTE | 2018-02-26 22:53 | Internal Medicine Prog Note ---
Internal Medicine Subjective - Subjective Service Date: 02/26/18 Patient is:: awake, in bed, confused Per staff patient has:: no adverse event Internal Medicine Objective - Results Result Diagrams: 02/18/18 20:30 02/18/18 20:30 Recent Labs: Laboratory Last Values WBC 7.3 Th/cmm (4.8-10.8) 02/18/18 20:30 RBC 3.90 Mil/cmm (3.80-5.20) 02/18/18 20:30 Hgb 12.4 gm/dL (12-16) 02/18/18 20:30 Hct 36.2 % (41.0-60) L 02/18/18 20:30 MCV 92.8 fl (81-100) 02/18/18 20:30 MCH 31.7 pg (27.0-31.0) H 02/18/18 20:30 MCHC Differential 34.1 pg (28.0-36.0) 02/18/18 20:30 RDW 12.9 % (11.5-20.0) 02/18/18 20:30 Plt Count 246 Th/cmm (150-400) 02/18/18 20:30 MPV 6.9 fl 02/18/18 20:30 Neutrophils % 71.2 % (40.0-80.0) 02/18/18 20:30 Lymphocytes % 19.4 % (20.0-50.0) L 02/18/18 20:30 Monocytes % 5.6 % (2.0-10.0) 02/18/18 20:30 Eosinophils % 3.0 % (0.0-5.0) 02/18/18 20:30 Basophils % 0.8 % (0.0-2.0) 02/18/18 20:30 Sodium 138 mEq/L (136-145) 02/18/18 20:30 Potassium 3.6 mEq/L (3.5-5.1) 02/18/18 20:30 Chloride 106 mEq/L (98-107) 02/18/18 20:30 Carbon Dioxide 24.4 mEq/L (21.0-31.0) 02/18/18 20:30 Anion Gap 11.2 (7.0-16.0) 02/18/18 20:30 BUN 37 mg/dL (7-25) H 02/18/18 20:30 Creatinine 1.1 mg/dL (0.6-1.2) 02/18/18 20:30 Est GFR ( Amer) TNP 02/18/18 20:30 Est GFR (Non-Af Amer) TNP 02/18/18 20:30 BUN/Creatinine Ratio 33.6 02/18/18 20:30 Glucose 108 mg/dL (70-105) H 02/18/18 20:30 Hemoglobin A1c % 5.8 % (4.0-6.0) 02/18/18 20:30 Calcium 10.2 mg/dL (8.6-10.3) 02/18/18 20:30 Total Bilirubin 0.3 mg/dL (0.3-1.0) 02/18/18 20:30 AST 18 U/L (13-39) 02/18/18 20:30 ALT 6 U/L (7-52) L 02/18/18 20:30 Alkaline Phosphatase 73 U/L (34-104) 02/18/18 20:30 Troponin I 0.01 ng/mL (0.01-0.05) 02/18/18 20:30 Total Protein 6.7 gm/dL (6.0-8.3) 02/18/18 20:30 Albumin 4.0 gm/dL (3.7-5.3) 02/18/18 20:30 Globulin 2.7 gm/dL 02/18/18 20:30 Albumin/Globulin Ratio 1.5 (1.0-1.8) 02/18/18 20:30 Triglycerides 85 mg/dL (<150) 02/18/18 20:30 Cholesterol 204 mg/dL (<200) H 02/18/18 20:30 LDL Cholesterol Direct 135 mg/dL (75-193) 02/18/18 20:30 HDL Cholesterol 51 mg/dL (23-92) 02/18/18 20:30 TSH 1.62 uIU/ml (0.34-5.60) 02/18/18 20:30 RPR NONREACTIVE (NONREACTIVE) 02/18/18 20:30 - Physical Exam Vitals and I&O: Vital Signs Temp 97.0 F 02/26/18 14:00 Pulse 89 02/26/18 14:00 Resp 20 02/26/18 14:00 BP 155/86 02/26/18 14:00 Pulse Ox 97 02/26/18 14:00 Intake & Output 02/26/18 02/26/18 02/27/18 06:59 18:59 06:59 Intake Total 500 900 Balance 500 900 Intake: Oral 500 900 Other: # Voids 3 4 # Bowel Movements 0 1 Active Medications: Current Medications Al Hydrox/Mg Hydrox/Simethicone (Maalox) 30 ml PO Q6HR PRN PRN Reason: GI DISTRESS Stop: 04/20/18 04:53 Atorvastatin Calcium (Lipitor) 20 mg PO HS ALYSSA Stop: 04/20/18 20:59 Last Admin: 02/26/18 20:51 Dose: 20 mg Levothyroxine Sodium (Synthroid) 0.025 mg PO QDAC ALYSSA Stop: 04/20/18 07:29 Last Admin: 02/26/18 06:34 Dose: 0.025 mg Lorazepam (Ativan) 0.5 mg PO Q4HR PRN; Protocol PRN Reason: Agitation Stop: 04/24/18 07:41 Losartan Potassium (Cozaar) 50 mg PO DAILY ALYSSA Stop: 04/20/18 08:59 Last Admin: 02/26/18 08:28 Dose: 50 mg Magnesium Hydroxide (Milk Of Magnesia) 30 ml PO DAILY PRN PRN Reason: Constipation Stop: 04/20/18 04:53 Memantine (Namenda) 5 mg PO BID ALYSSA Stop: 04/20/18 08:59 Last Admin: 02/26/18 16:10 Dose: 5 mg Zolpidem Tartrate (Ambien) 5 mg PO HS PRN PRN Reason: Insomnia Stop: 04/20/18 04:56 Last Admin: 02/25/18 20:55 Dose: 5 mg General: demented HEENT: NC/AT, PERRLA, EOMI, anicteric sclerae, throat clear Neck: Supple, No JVD, No thyromegaly, +2 carotid pulse wo bruit, No LAD Lungs: CTAB Cardiovascular: RRR, Normal S1, Normal S2, without murmur Abdomen: soft, non-tender, non-distended Extremities: clear Neurological: no change Internal Medicine Assmt/Plan - Assessment Assessment: 1.HTN. 2.HYPOTHYROIDISIM. 3.HYPERLIPIDEMIA. 4.DEMENTIA. - Plan Plan: CONTINUE ON CURRENT MEDICATION AND DIET. Nutritional Asmnt/Malnutr-PDOC - Dietary Evaluation Malnutrition Findings (Please click <Entered> for more info): Nutritional Asmnt/Malnutrition Start: 02/23/18 12: 53 Text: Status: Complete Freq: Protocol: Document 02/23/18 12:53 BHARATH (Rec: 02/23/18 12:56 RAYSA [email or web address]) Nutritional Asmnt/Malnutrition Patient General Information Nutritional Screening Moderate Risk Diagnosis psychosis NOS Pertinent Medical Hx/Surgical Hx HTN, hypothyroidism, hyperlipidemia, dementia, DJD Subjective Information Pt seen sleeping in bed at time of visit. per EMR, PO intake 100% of meals. Current Diet Order/ Nutrition Support mech soft chopped NIKOLAY Pertinent Medications synthroid Pertinent Labs 02/18 BUN 37, glucose 108, A1c 5.8 Nutritional Hx/Data Height 1.63 m Height (Calculated Centimeters) 162.6 Current Weight (lbs) 63.503 kg Weight (Calculated Kilograms) 63.5 Weight (Calculated Grams) 28654.9 [place] Body Weight 120 Body Mass Index (BMI) 24.0 Weight Status Approriate GI Symptoms GI Symptoms None Last BM none Difficult in: None Skin Integrity/Comment: intact Current %PO Good (75-100%) Estimated Nutritional Goals BEE in Kcals: Using Current wt Calories/Kcals/Kg 25-30 Kcals Calculated 9036-1243 Protein: Using Current wt Protein g/k Protein Calculated 64 Fluid: ml 1600-1920ml (1ml/kcal) Nutritional Problem No current Nutrition Prob Problem N/A Malnutrition Alert Is there a minimum of two criteria No selected? Query Text:Check all the applicable criteria. A minimum of two criteria are recommended for diagnosis of either severe or non-severe malnutrition. Malnutrition Related to Morbid Obesity Malnutrition related to morbid obesity No Intervention/Recommendation Comments 1. Continue with mech soft chopped NIKOLAY diet as ordered. 2. Monitor PO intake, wt, labs and skin integrity 3. F/U as low risk in 7 days, 03/02 Expected Outcomes/Goals Expected Outcomes/Goals 1. PO intake to meet at least 75% of nutritional needs. 2. Wt stability, skin to remain intact, labs to approach WNL.
[2018-02-27] MEDS: Levothyroxine 0.025 Mg Tab PO SCH (06:37)
[2018-02-27] MEDS: Multivitamin w/ Minerals Tab PO SCH (09:22)
--- NOTE | 2018-02-27 19:42 | Internal Medicine Prog Note ---
Internal Medicine Subjective - Subjective Service Date: 02/27/18 Patient seen and examined:: with staff Patient is:: awake, in bed, confused Per staff patient has:: no adverse event Internal Medicine Objective - Results Result Diagrams: 02/18/18 20:30 02/18/18 20:30 Recent Labs: Laboratory Last Values WBC 7.3 Th/cmm (4.8-10.8) 02/18/18 20:30 RBC 3.90 Mil/cmm (3.80-5.20) 02/18/18 20:30 Hgb 12.4 gm/dL (12-16) 02/18/18 20:30 Hct 36.2 % (41.0-60) L 02/18/18 20:30 MCV 92.8 fl (81-100) 02/18/18 20:30 MCH 31.7 pg (27.0-31.0) H 02/18/18 20:30 MCHC Differential 34.1 pg (28.0-36.0) 02/18/18 20:30 RDW 12.9 % (11.5-20.0) 02/18/18 20:30 Plt Count 246 Th/cmm (150-400) 02/18/18 20:30 MPV 6.9 fl 02/18/18 20:30 Neutrophils % 71.2 % (40.0-80.0) 02/18/18 20:30 Lymphocytes % 19.4 % (20.0-50.0) L 02/18/18 20:30 Monocytes % 5.6 % (2.0-10.0) 02/18/18 20:30 Eosinophils % 3.0 % (0.0-5.0) 02/18/18 20:30 Basophils % 0.8 % (0.0-2.0) 02/18/18 20:30 Sodium 138 mEq/L (136-145) 02/18/18 20:30 Potassium 3.6 mEq/L (3.5-5.1) 02/18/18 20:30 Chloride 106 mEq/L (98-107) 02/18/18 20:30 Carbon Dioxide 24.4 mEq/L (21.0-31.0) 02/18/18 20:30 Anion Gap 11.2 (7.0-16.0) 02/18/18 20:30 BUN 37 mg/dL (7-25) H 02/18/18 20:30 Creatinine 1.1 mg/dL (0.6-1.2) 02/18/18 20:30 Est GFR ( Amer) TNP 02/18/18 20:30 Est GFR (Non-Af Amer) TNP 02/18/18 20:30 BUN/Creatinine Ratio 33.6 02/18/18 20:30 Glucose 108 mg/dL (70-105) H 02/18/18 20:30 Hemoglobin A1c % 5.8 % (4.0-6.0) 02/18/18 20:30 Calcium 10.2 mg/dL (8.6-10.3) 02/18/18 20:30 Total Bilirubin 0.3 mg/dL (0.3-1.0) 02/18/18 20:30 AST 18 U/L (13-39) 02/18/18 20:30 ALT 6 U/L (7-52) L 02/18/18 20:30 Alkaline Phosphatase 73 U/L (34-104) 02/18/18 20:30 Troponin I 0.01 ng/mL (0.01-0.05) 02/18/18 20:30 Total Protein 6.7 gm/dL (6.0-8.3) 02/18/18 20:30 Albumin 4.0 gm/dL (3.7-5.3) 02/18/18 20:30 Globulin 2.7 gm/dL 02/18/18 20:30 Albumin/Globulin Ratio 1.5 (1.0-1.8) 02/18/18 20:30 Triglycerides 85 mg/dL (<150) 02/18/18 20:30 Cholesterol 204 mg/dL (<200) H 02/18/18 20:30 LDL Cholesterol Direct 135 mg/dL (75-193) 02/18/18 20:30 HDL Cholesterol 51 mg/dL (23-92) 02/18/18 20:30 TSH 1.62 uIU/ml (0.34-5.60) 02/18/18 20:30 RPR NONREACTIVE (NONREACTIVE) 02/18/18 20:30 - Physical Exam Vitals and I&O: Vital Signs Temp 98.7 F 02/27/18 14:00 Pulse 90 02/27/18 14:00 Resp 18 02/27/18 14:00 BP 155/91 02/27/18 14:00 Pulse Ox 95 02/27/18 14:00 Intake & Output 02/27/18 02/27/18 02/28/18 06:59 18:59 06:59 Intake Total 700 Balance 700 Intake: Oral 700 Other: # Voids 3 # Bowel Movements 0 Active Medications: Current Medications Al Hydrox/Mg Hydrox/Simethicone (Maalox) 30 ml PO Q6HR PRN PRN Reason: GI DISTRESS Stop: 04/20/18 04:53 Atorvastatin Calcium (Lipitor) 20 mg PO HS ALYSSA Stop: 04/20/18 20:59 Last Admin: 02/26/18 20:51 Dose: 20 mg Levothyroxine Sodium (Synthroid) 0.025 mg PO QDAC ALYSSA Stop: 04/20/18 07:29 Last Admin: 02/27/18 06:37 Dose: 0.025 mg Lorazepam (Ativan) 0.5 mg PO Q4HR PRN; Protocol PRN Reason: Agitation Stop: 04/24/18 07:41 Losartan Potassium (Cozaar) 50 mg PO DAILY ALYSSA Stop: 04/20/18 08:59 Last Admin: 02/27/18 09:21 Dose: 50 mg Magnesium Hydroxide (Milk Of Magnesia) 30 ml PO DAILY PRN PRN Reason: Constipation Stop: 04/20/18 04:53 Memantine (Namenda) 5 mg PO BID ALYSSA Stop: 04/20/18 08:59 Last Admin: 02/27/18 16:33 Dose: 5 mg Zolpidem Tartrate (Ambien) 5 mg PO HS PRN PRN Reason: Insomnia Stop: 04/20/18 04:56 Last Admin: 02/25/18 20:55 Dose: 5 mg General: demented HEENT: NC/AT, PERRLA, EOMI, anicteric sclerae, throat clear Neck: Supple, No JVD, No thyromegaly, +2 carotid pulse wo bruit, No LAD Lungs: CTAB Cardiovascular: RRR, Normal S1, Normal S2, without murmur Abdomen: soft, non-tender, non-distended Extremities: clear Neurological: no change Internal Medicine Assmt/Plan - Assessment Assessment: 1.HTN. 2.HYPOTHYROIDISIM. 3.HYPERLIPIDEMIA. 4.DEMENTIA. - Plan Plan: CONTINUE ON CURRENT MEDICATION AND DIET. Nutritional Asmnt/Malnutr-PDOC - Dietary Evaluation Malnutrition Findings (Please click <Entered> for more info): Nutritional Asmnt/Malnutrition Start: 02/23/18 12: 53 Text: Status: Complete Freq: Protocol: Document 02/23/18 12:53 BHARATH (Rec: 02/23/18 12:56 LCRAYSA [email or web address]) Nutritional Asmnt/Malnutrition Patient General Information Nutritional Screening Moderate Risk Diagnosis psychosis NOS Pertinent Medical Hx/Surgical Hx HTN, hypothyroidism, hyperlipidemia, dementia, DJD Subjective Information Pt seen sleeping in bed at time of visit. per EMR, PO intake 100% of meals. Current Diet Order/ Nutrition Support mech soft chopped NIKOLAY Pertinent Medications synthroid Pertinent Labs 02/18 BUN 37, glucose 108, A1c 5.8 Nutritional Hx/Data Height 1.63 m Height (Calculated Centimeters) 162.6 Current Weight (lbs) 63.503 kg Weight (Calculated Kilograms) 63.5 Weight (Calculated Grams) 91715.9 [place] Body Weight 120 Body Mass Index (BMI) 24.0 Weight Status Approriate GI Symptoms GI Symptoms None Last BM none Difficult in: None Skin Integrity/Comment: intact Current %PO Good (75-100%) Estimated Nutritional Goals BEE in Kcals: Using Current wt Calories/Kcals/Kg 25-30 Kcals Calculated 8845-7818 Protein: Using Current wt Protein g/k Protein Calculated 64 Fluid: ml 1600-1920ml (1ml/kcal) Nutritional Problem No current Nutrition Prob Problem N/A Malnutrition Alert Is there a minimum of two criteria No selected? Query Text:Check all the applicable criteria. A minimum of two criteria are recommended for diagnosis of either severe or non-severe malnutrition. Malnutrition Related to Morbid Obesity Malnutrition related to morbid obesity No Intervention/Recommendation Comments 1. Continue with mech soft chopped NIKOLAY diet as ordered. 2. Monitor PO intake, wt, labs and skin integrity 3. F/U as low risk in 7 days, 03/02 Expected Outcomes/Goals Expected Outcomes/Goals 1. PO intake to meet at least 75% of nutritional needs. 2. Wt stability, skin to remain intact, labs to approach WNL.
[2018-02-27] MEDS: Atorvastatin Calcium 10 MG TAB PO SCH (20:49)
--- NOTE | 2018-02-27 23:33 | Progress Notes ---
DATE: 02/27/[address] Allen. This is a well-known patient is seen covering for Dr. Allen. The patient will be confused, continues to unable to participate in meaningful conversation. Also, there is a language barrier and she was also psychotic. She is internally preoccupied, easily agitated, trying to get out of a Carole chair, fighting with anybody the comes close to her, she has been compliant with the medication with no side effects, no sedation, no nausea. She is on Namenda 5 mg twice a day. We will continue to work with the patient in group therapy, milieu therapy, and adjust medication as needed. JOB# [id number]
[2018-02-28] MEDS: Levothyroxine 0.025 Mg Tab PO SCH (06:35)
[2018-02-28] MEDS: Multivitamin w/ Minerals Tab PO SCH (09:15)
--- NOTE | 2018-02-28 13:15 | Internal Medicine Prog Note ---
Internal Medicine Subjective - Subjective Service Date: 02/28/18 Patient seen and examined:: with staff Patient is:: awake, in bed, confused Per staff patient has:: no adverse event Internal Medicine Objective - Results Result Diagrams: 02/18/18 20:30 02/18/18 20:30 Recent Labs: Laboratory Last Values WBC 7.3 Th/cmm (4.8-10.8) 02/18/18 20:30 RBC 3.90 Mil/cmm (3.80-5.20) 02/18/18 20:30 Hgb 12.4 gm/dL (12-16) 02/18/18 20:30 Hct 36.2 % (41.0-60) L 02/18/18 20:30 MCV 92.8 fl (81-100) 02/18/18 20:30 MCH 31.7 pg (27.0-31.0) H 02/18/18 20:30 MCHC Differential 34.1 pg (28.0-36.0) 02/18/18 20:30 RDW 12.9 % (11.5-20.0) 02/18/18 20:30 Plt Count 246 Th/cmm (150-400) 02/18/18 20:30 MPV 6.9 fl 02/18/18 20:30 Neutrophils % 71.2 % (40.0-80.0) 02/18/18 20:30 Lymphocytes % 19.4 % (20.0-50.0) L 02/18/18 20:30 Monocytes % 5.6 % (2.0-10.0) 02/18/18 20:30 Eosinophils % 3.0 % (0.0-5.0) 02/18/18 20:30 Basophils % 0.8 % (0.0-2.0) 02/18/18 20:30 Sodium 138 mEq/L (136-145) 02/18/18 20:30 Potassium 3.6 mEq/L (3.5-5.1) 02/18/18 20:30 Chloride 106 mEq/L (98-107) 02/18/18 20:30 Carbon Dioxide 24.4 mEq/L (21.0-31.0) 02/18/18 20:30 Anion Gap 11.2 (7.0-16.0) 02/18/18 20:30 BUN 37 mg/dL (7-25) H 02/18/18 20:30 Creatinine 1.1 mg/dL (0.6-1.2) 02/18/18 20:30 Est GFR ( Amer) TNP 02/18/18 20:30 Est GFR (Non-Af Amer) TNP 02/18/18 20:30 BUN/Creatinine Ratio 33.6 02/18/18 20:30 Glucose 108 mg/dL (70-105) H 02/18/18 20:30 Hemoglobin A1c % 5.8 % (4.0-6.0) 02/18/18 20:30 Calcium 10.2 mg/dL (8.6-10.3) 02/18/18 20:30 Total Bilirubin 0.3 mg/dL (0.3-1.0) 02/18/18 20:30 AST 18 U/L (13-39) 02/18/18 20:30 ALT 6 U/L (7-52) L 02/18/18 20:30 Alkaline Phosphatase 73 U/L (34-104) 02/18/18 20:30 Troponin I 0.01 ng/mL (0.01-0.05) 02/18/18 20:30 Total Protein 6.7 gm/dL (6.0-8.3) 02/18/18 20:30 Albumin 4.0 gm/dL (3.7-5.3) 02/18/18 20:30 Globulin 2.7 gm/dL 02/18/18 20:30 Albumin/Globulin Ratio 1.5 (1.0-1.8) 02/18/18 20:30 Triglycerides 85 mg/dL (<150) 02/18/18 20:30 Cholesterol 204 mg/dL (<200) H 02/18/18 20:30 LDL Cholesterol Direct 135 mg/dL (75-193) 02/18/18 20:30 HDL Cholesterol 51 mg/dL (23-92) 02/18/18 20:30 TSH 1.62 uIU/ml (0.34-5.60) 02/18/18 20:30 RPR NONREACTIVE (NONREACTIVE) 02/18/18 20:30 - Physical Exam Vitals and I&O: Vital Signs Temp 97.8 F 02/28/18 06:40 Pulse 86 02/28/18 09:15 Resp 18 02/28/18 06:40 BP 160/97 02/28/18 09:15 Pulse Ox 96 02/28/18 06:40 Intake & Output 02/27/18 02/28/18 02/28/18 18:59 06:59 18:59 Intake Total 700 Balance 700 Intake: Oral 700 Other: # Voids 3 # Bowel Movements 0 Active Medications: Current Medications Al Hydrox/Mg Hydrox/Simethicone (Maalox) 30 ml PO Q6HR PRN PRN Reason: GI DISTRESS Stop: 04/20/18 04:53 Atorvastatin Calcium (Lipitor) 20 mg PO HS ALYSSA Stop: 04/20/18 20:59 Last Admin: 02/27/18 20:49 Dose: 20 mg Levothyroxine Sodium (Synthroid) 0.025 mg PO QDAC ALYSSA Stop: 04/20/18 07:29 Last Admin: 02/28/18 06:35 Dose: 0.025 mg Lorazepam (Ativan) 0.5 mg PO Q4HR PRN; Protocol PRN Reason: Agitation Stop: 04/24/18 07:41 Last Admin: 02/27/18 20:49 Dose: 0.5 mg Losartan Potassium (Cozaar) 50 mg PO DAILY ALYSSA Stop: 04/20/18 08:59 Last Admin: 02/28/18 09:15 Dose: 50 mg Magnesium Hydroxide (Milk Of Magnesia) 30 ml PO DAILY PRN PRN Reason: Constipation Stop: 04/20/18 04:53 Memantine (Namenda) 5 mg PO BID ALYSSA Stop: 04/20/18 08:59 Last Admin: 02/28/18 09:16 Dose: 5 mg Zolpidem Tartrate (Ambien) 5 mg PO HS PRN PRN Reason: Insomnia Stop: 04/20/18 04:56 Last Admin: 02/27/18 20:49 Dose: 5 mg General: demented HEENT: NC/AT, PERRLA, EOMI, anicteric sclerae, throat clear Neck: Supple, No JVD, No thyromegaly, +2 carotid pulse wo bruit, No LAD Lungs: CTAB Cardiovascular: RRR, Normal S1, Normal S2, without murmur Abdomen: soft, non-tender, non-distended Extremities: clear Neurological: no change Internal Medicine Assmt/Plan - Assessment Assessment: 1.HTN. 2.HYPOTHYROIDISIM. 3.HYPERLIPIDEMIA. 4.DEMENTIA. - Plan Plan: CONTINUE ON CURRENT MEDICATION AND DIET. Nutritional Asmnt/Malnutr-PDOC - Dietary Evaluation Malnutrition Findings (Please click <Entered> for more info): Nutritional Asmnt/Malnutrition Start: 02/23/18 12: 53 Text: Status: Complete Freq: Protocol: Document 02/23/18 12:53 BHARATH (Rec: 02/23/18 12:56 LCHENAdam [email or web address]) Nutritional Asmnt/Malnutrition Patient General Information Nutritional Screening Moderate Risk Diagnosis psychosis NOS Pertinent Medical Hx/Surgical Hx HTN, hypothyroidism, hyperlipidemia, dementia, DJD Subjective Information Pt seen sleeping in bed at time of visit. per EMR, PO intake 100% of meals. Current Diet Order/ Nutrition Support mec soft chopped NIKOLAY Pertinent Medications synthroid Pertinent Labs 02/18 BUN 37, glucose 108, A1c 5.8 Nutritional Hx/Data Height 1.63 m Height (Calculated Centimeters) 162.6 Current Weight (lbs) 63.503 kg Weight (Calculated Kilograms) 63.5 Weight (Calculated Grams) 80500.9 [place] Body Weight 120 Body Mass Index (BMI) 24.0 Weight Status Approriate GI Symptoms GI Symptoms None Last BM none Difficult in: None Skin Integrity/Comment: intact Current %PO Good (75-100%) Estimated Nutritional Goals BEE in Kcals: Using Current wt Calories/Kcals/Kg 25-30 Kcals Calculated 5713-6255 Protein: Using Current wt Protein g/k Protein Calculated 64 Fluid: ml 1600-1920ml (1ml/kcal) Nutritional Problem No current Nutrition Prob Problem N/A Malnutrition Alert Is there a minimum of two criteria No selected? Query Text:Check all the applicable criteria. A minimum of two criteria are recommended for diagnosis of either severe or non-severe malnutrition. Malnutrition Related to Morbid Obesity Malnutrition related to morbid obesity No Intervention/Recommendation Comments 1. Continue with [facility] soft chopped NIKOLAY diet as ordered. 2. Monitor PO intake, wt, labs and skin integrity 3. F/U as low risk in 7 days, 03/02 Expected Outcomes/Goals Expected Outcomes/Goals 1. PO intake to meet at least 75% of nutritional needs. 2. Wt stability, skin to remain intact, labs to approach WNL.
--- NOTE | 2018-02-28 17:40 | Progress Notes ---
DATE: 02/26/2018 SUBJECTIVE: Chart reviewed and the patient interviewed. Also, discussed the patient's condition with the staff and reviewed the records and labs. The patient is still confused and disoriented. The patient also is easily agitated and she is still fighting with the staff when they tried to help her. The patient also is compliant with taking her medications and she has no side effect of medications. She is resisting care. Otherwise, the patient is compliant with taking medications with no side effects. ASSESSMENT: The patient is still agitated and confused. TREATMENT PLAN: Continue to monitor her behavior and her condition closely. Also, continue to work on her ineffective coping and her poor judgment and confusion. [facility]# [id number]
[2018-02-28] MEDS: Atorvastatin Calcium 10 MG TAB PO SCH (20:54)
--- NOTE | 2018-02-28 21:55 | Progress Notes ---
DATE: 02/28/2018 Case was discussed with staff of the patient, reviewed records. The patient continues to be internally preoccupied, staying to herself, unable to participate in meaningful conversation, confused, easily agitated, irritable, fighting with people who comes close to her. She is compliant with the medication with no side effects, no sedation, and no nausea. We will continue the patient in group therapy, milieu therapy, and adjust the medications as needed. JOB# [id number]
[2018-03-01] MEDS: Levothyroxine 0.025 Mg Tab PO SCH (06:30)
[2018-03-01] MEDS: Multivitamin w/ Minerals Tab PO SCH (08:33)
--- NOTE | 2018-03-02 22:26 | Discharge Summary ---
DATE OF DISCHARGE: 03/01/2018 PATIENT'S AGE: 87. SEX: Female. PHYSICIAN: Colin Allen MD, MPH. FINAL DIAGNOSIS: PRIMARY DIAGNOSIS: Unspecified psychosis. REASON FOR HOSPITALIZATION: The patient was admitted to the hospital because of increased confusion and agitation. The patient was increasingly agitated and in irritable mood in [facility] where she lived. She also was not able to follow any directions. HOSPITAL COURSE: The patient continued to be agitated and irritable mood. The patient also was withdrawn and guarded and mostly because of the language barrier and also because of her confusion and agitation. The patient was given Namenda. Gradually, the patient's affect was brighter. The patient was less irritable and less agitated. The patient was discharged from the hospital and discussion with [facility]. Physical exam showed no major medical problems. AFTER DISCHARGE PLANS: The patient discharged from the hospital and return to [facility] with plans for followup there. EXPECTED OUTCOME AFTER DISCHARGE: Fair if the patient continued to take her medications and follow up with discharge plans. [facility]# [id number]
== END 2018-03-01 11:00 | DRG 885 ==
LOC: ER 20:07 → GERO2 02-19 03:50 → GERO 02-22 21:48
PROVIDERS: ADMIT Psychiatry & Neurology Psychiatry; ATTEND Psychiatry & Neurology Psychiatry
DX: F29 Unspecified psychosis not due to a substance or known physiological condition (principal); F03.91 Unspecified dementia, unspecified severity, with behavioral disturbance; I10 Essential (primary) hypertension; E78.5 Hyperlipidemia, unspecified; E03.9 Hypothyroidism, unspecified; E86.0 Dehydration; M19.90 Unspecified osteoarthritis, unspecified site
CPT/HCPCS: 36415-UA; 80053-TC; 80061-TC; 83036-90; 84443-TC; 84484-TC; 85025-TC; 86592-TC; 93005; 96374; J1200; J1630; J2060

== ENCOUNTER 2018-05-09 15:30 | Emergency (ER) | payer MEDICARE, MEDICAID ==
[2018-05-09] MEDS ORDERED: Naloxone 0.4 mg/mL 1mL Vial IVP STA (15:57)
[2018-05-09] MEDS ORDERED: Naloxone 0.4 mg/mL 1mL Vial ONE (16:09)
[2018-05-09 16:24] LABS: % BASOPHILS 0.4 % (0.0-2.0); % LYMPHOCYTES 8.4 % (20.0-50.0); % MONOCYTES 4.7 % (2.0-10.0); % NEUTROPHILS 85.5 % (40.0-80.0); EOSINOPHILE ABSOLUTE 0.1 Th/cmm (0.1-0.4); HEMATOCRIT 36.5 % (41.0-60); HEMOGLOBIN 12.2 gm/dL (12-16); LYMPHOCYTE ABSOLUTE 0.7 Th/cmm (1.5-3.0); MEAN CELL VOLUME 93.9 fl (81-100); MEAN CORPUSCULAR HEMOGLOBIN 31.3 pg (27.0-31.0); MEAN CORPUSCULAR HGB CONC 33.4 pg (28.0-36.0); MEAN PLATELET VOLUME 7.4 fl; MONOCYTE ABSOLUTE 0.4 Th/cmm (0.3-1.0); NEUTROPHILE ABSOLUTE 6.9 Th/cmm (1.8-8.0); PLATELET COUNT 262 Th/cmm (150-400); RED BLOOD COUNT 3.89 Mil/cmm (3.80-5.20); RED CELL DISTRIBUTION WIDTH 12.7 % (11.5-20.0); WHITE BLOOD COUNT 8.1 Th/cmm (4.8-10.8)
--- NOTE | 2018-05-09 16:25 | ED Physician Chart ---
ED Chief Complaint/HPI - Patient Information Date Seen:: 05/09/18 Time Seen:: 17:02 Chief Complaint:: altered level of consciousness History of Present Illness:: altered level of consciousness. last known normal was yesterday. Allergies:: Allergies Allergy/AdvReac Type Severity Reaction Status Date / Time No Known Allergies Allergy Verified 02/18/18 20:34 Historian:: EMS, Medical Records Review:: Nurse's Note Reviewed, Transfer documents Reviewed ED Review of Systems - Review of Systems General/Constitutional: No fever, No chills, No weight loss, No weakness, No diaphoresis, No edema, No loss of appetite Skin: No skin lesions, No rash, No bruising Head: No headache, No light-headedness Eyes: No loss of vision, No pain, No diplopia ENT: No earache, No nasal drainage, No sore throat, No tinnitus Neck: No neck pain, No swelling, No thyromegaly, No stiffness, No mass noted Cardio Vascular: No chest pain, No palpitations, No PND, No orthopnea, No edema Pulmonary: No SOB, No cough, No sputum, No wheezing GI: No nausea, No vomiting, No diarrhea, No pain, No melena, No hematochezia, No constipation, No hematemesis G/U: No dysuria, No frequency, No hematuria Musculoskeletal: No bone or joint pain, No back pain, No muscle pain Endocrine: No polyuria, No polydipsia Psychiatric: No prior psych history, No depression, No anxiety, No suicidal ideation Hematopoietic: No bruising, No lymphadenopathy Allergic/Immuno: No urticaria, No angioedema Neurological: Weakness, Other (altered level of consciousness) ED Past Medical History - Past Medical History Obtainable: No Past Medical History: HTN, Dyslipidemia, Thyroid disorder, Dementia, Other Psychiatricy History: Dementia, Other (anxiety) Family Medical History - Family Member Mother History Unknown: Yes ED Physical Exam - Physical Examination Other Gen/Cons comments:: somnolent. sats 98% on 2 liters. upon return from CT scan and while I was on the phone with the daughter, patient woke up and started moving her arms and legs and spontaneously opening her eyes. Head: Atraumatic Eyes: Lids, conjuctiva normal, PERRL, EOMI Other Eyes comments:: cataracts. Skin: Nl inspection, No rash, No skin lesions, No ecchymosis, Well hydrated, No lymphadenopathy ENMT: External ears, nose nl Neck: Nontender, Full ROM w/o pain, No JVD, No nuchal rigidity, No bruit, No mass, No stridor Respiratory: Nl effort/Exclusion, Clear to Auscultation, No Wheeze/Rhonchi/Rales Cardio Vascular: RRR, No murmur, gallop, rubs, NL S1 S2 GI: No tenderness/rebounding/guarding, No organomegaly, No hernia, Normal BS's, Nondistended, No mass/bruits, No McBurney tenderness : No CVA tenderness Extremities: No tenderness or effusion, Full ROM, normal strength in all extremities, No edema, Normal digits & nails Neuro/Psych: Normal motor strength, Mood normal, No focal deficits Other Neuro/Psych comments:: when awake, she moves her arms and legs spontaneously. she opens her eyes spontaneously and speaks. Misc: Normal back, No paraspinal tenderness ED Labs/Radiology/EKG Results - Lab Results Results: Laboratory Tests 05/09/18 15:51 POC Glucose 121 H ED Assessment - Assessment General Assessment: EKG from 15:51:32 p.m.: normal sinus rhythm, flipped t wave in III and AVR. Assessment/Comments:: EKG from 16:29:08 p.m. reveals a unifocal PVC and normal sinus rhythm. Called Dr. Green at 4:40 p.m. to let him know about the intracranial hemorrhage. He told us to transfer the patient. [facility] at 17:03. no beds. [place]: 17:05. Dr. Ricks accepted the patient ER to ER transfer. ED Septic Shock - . Is Septic Shock (SBP<90, OR Lactate>4 mmol\L) present?: No ED Reassessment (Disposition) - Reassessment Reassessment Condition:: Improved - Diagnosis Diagnosis:: Right parietal subdural and subarachnoid with bleed in the falx. (per my reading) and subacute per radiologist's reading. Hypertension Psychosis. - Patient Disposition Discharge/Transfer:: Acute Care (other hosp) Transport Method:: ACLS Condition at Disposition:: Stable, Improved
[2018-05-09 16:40] LABS: ALB/GLOB RATIO 1.1 (1.0-1.8); ALBUMIN 3.8 gm/dL (3.7-5.3); ALKALINE PHOSPHATASE 76 U/L (34-104); ANION GAP 10.9 (7.0-16.0); BILIRUBIN,TOTAL 0.6 mg/dL (0.3-1.0); BUN - UREA NITROGEN 18 mg/dL (7-25); CALCIUM SERUM 10.3 mg/dL (8.6-10.3); CARBON DIOXIDE 25.6 mEq/L (21.0-31.0); CHLORIDE 106 mEq/L (98-107); CREATININE - SERUM 0.8 mg/dL (0.6-1.2); GLUCOSE 113 mg/dL (70-105); MAGNESIUM 2.4 mg/dL (1.9-2.7); POTASSIUM SERUM 3.5 mEq/L (3.5-5.1); SGOT 21 U/L (13-39); SGPT/ALT 5 U/L (7-52); SODIUM SERUM 139 mEq/L (136-145); TOTAL PROTEIN,SERUM 7.3 gm/dL (6.0-8.3)
[2018-05-09] MEDS ORDERED: Nitroglycerin 50mg/D5W Premix 50 MG/250 ML INFUS..BTL IV ONE (16:43)
[2018-05-09] MEDS ORDERED: Nitroglycerin 50mg/D5W Premix 50 MG/250 ML INFUS..BTL IV PRN (16:54)
[2018-05-09] MEDS ORDERED: NITROGLYCERIN OINT 2% 1 INCH PACKET TP ONE (18:09)
[2018-05-09] MEDS ORDERED: NITROGLYCERIN OINT 2% 1 INCH PACKET TP STA (18:28)
[2018-05-09] MEDS ORDERED: Piperacillin Sodium/Tazobact 3.375 gm Vial IV ONE (18:31)
--- NOTE | 2018-05-10 07:52 | Diagnostic Imaging Report ---
Head CT without intravenous contrast Indication: Altered level of consciousness Comparison: None Technique: Axial images were obtained from the vertex to the skull base without IV contrast. Coronal reconstructions were made. Total DLP: 550, [id number] FINDINGS: Images of the brain obtained without contrast demonstrate evidence of acute appearing right-sided subdural hematoma involving the right frontal and right temporal lobe regions measuring 3.5 mm from the inner table of the skull to the brain parenchyma greatest dimension. No significant mass effect identified. Additional small focus of hemorrhage is also seen along the left frontal extra-axial region also subdural in etiology measuring 3 mm from the inner table of the skull to the brain parenchyma. This measures 1.1 cm in greatest longitudinal measurement. There is also diffuse hemorrhage seen along the falx on the left side measuring up to 8 mm in greatest transverse dimension with associated minimal mass effect upon the left cerebral hemisphere. Bilateral basal ganglia calcifications are noted. Atrophy is noted. The ventricles and basal cisterns are patent. No midline shift. Diffuse atherosclerosis is noted. There is also minimal hemorrhage seen along the left tentorium. Diffuse atherosclerosis is noted. A small amount of fluid is seen the left mastoid air cells. IMPRESSION: Acute small right sided subdural hematoma with no mass effect.. There is also more pronounced hemorrhage along the falx and small amount of hemorrhage along the left tentorium. There is mild mass effect from the hemorrhage along the falx upon the left cerebral hemisphere. Additional very small left frontal acute subdural hemorrhage is also seen along the left frontal lobe. Please refer to above for details. No midline shift. Atrophy Diffuse atherosclerotic vascular disease.
--- NOTE | 2018-05-10 08:31 | Diagnostic Imaging Report ---
Portable chest x-ray HISTORY: Shortness of breath The heart appears enlarged. Atherosclerotic calcification seen in the aorta. Mitral valve annulus calcification is seen. Accentuation of the lower interstitial lung markings. However, no acute focal processes are seen. IMPRESSION: 1. Cardiomegaly with atherosclerotic vascular changes 2. No acute focal pulmonary processes
== END 2018-05-09 19:10 | disposition short-term general hospital (02) ==
LOC: ER 15:30
DX: I62.00 Nontraumatic subdural hemorrhage, unspecified (principal); I10 Essential (primary) hypertension; F29 Unspecified psychosis not due to a substance or known physiological condition; E78.5 Hyperlipidemia, unspecified; E07.9 Disorder of thyroid, unspecified
CPT/HCPCS: 99285; 96374; 93005; 71045; 70450; 84484; 36415; 36416; 85379; 82948; 84443; 85025; 83735; 84100; 80053; 87040 ×2; J2543; X6614